=== PATIENT | female | born 1950 | race Caucasian/White ===

== ENCOUNTER 2018-03-28 16:20 | Observation (INO) | payer OTHER, MEDICAID ==
[~2018-03-28] VITALS: Ht 165.1 cm; Wt 100.0 kg
[~2018-03-28 16:20] MED LIST: BUPR150T3 PO; EXFO5TAB PO; HYDR-3580 PO; METO25CR PO; TORS20TA PO; WARF2.5 PO
[2018-03-28 16:22] VITALS: BP 182/89; PULSE 165; RESP 20; TEMP 99; O2SAT 97
[2018-03-28] MEDS ORDERED: ASPI-516 CHEW (16:33)
[2018-03-28] MEDS ORDERED: TORS20TA PO (16:33)
[2018-03-28] MEDS ORDERED: BUPR150CR PO (16:33)
[2018-03-28] MEDS ORDERED: FISHCAP4 PO (16:33)
[2018-03-28] MEDS ORDERED: WARF-18 PO (16:33)
[2018-03-28] MEDS ORDERED: METO1TAB42 PO (16:33)
[2018-03-28] MEDS ORDERED: ATOR20TA15 PO (16:36)
[2018-03-28] MEDS ORDERED: VALS1TAB70 PO (16:36)
[2018-03-28] MEDS ORDERED: GABA100C4 PO (16:36)
[2018-03-28] MEDS ORDERED: MIRTA15 PO (16:36)
[2018-03-28] MEDS ORDERED: LABE200T2 PO (16:36)
[2018-03-28] MEDS ORDERED: CLON0.3D T-DERMAL (16:36)
[2018-03-28] MEDS ORDERED: METF500T PO ×2 (16:36→19:29)
[2018-03-28] MEDS ORDERED: GERI8.6T PO (16:36)
[2018-03-28] MEDS: METOPROLOL TARTRATE 5 MG/5 ML VIAL IV PUSH PRN ×3 (16:39→16:54)
--- NOTE | 2018-03-28 16:41 | PD ---
HPI Chief Complaint: Cardiac Complaint Time Seen by Provider: 16:32 Travel History International Travel<30 days: No Contact w/Intl Traveler<30days: No Traveled to known affect area: No History of Present Illness HPI 67-year-old female complains of lower extremity swelling. Patient states that she started having increasing lower extremity swelling for the past 2 weeks. Patient states that she has some mild aching headache in the left side of the head yesterday but not today. Patient denies any visual change. Patient denies any neck pain. Patient denies any chest pain. Patient states that she had intermittent shortness of breath and dyspnea on exertion. Patient denies abdominal pain. Patient denies any nausea vomiting diarrhea. Patient denies any fever chills. Patient denies any injury to the lower extremity. Patient denies any history of DVT or PE. Patient has history hypertension, diabetes, hyper lipidemia. Patient status post stent placement right leg. Patient also has history of COPD. Patient is a smoker. Patient is on Coumadin. Patient on metoprolol ER 25 mg daily. PFSH Past Medical History Arthritis: Yes Autoimmune Disease: No Heart Rhythm Problems: No Cancer: No Cardiovascular Problems: Yes (HTN) High Cholesterol: Yes Chest Pain: No Congestive Heart Failure: No COPD: Yes Diabetes: Yes Patient Takes Glucophage: Yes Diminished Hearing: No Endocrine: No GERD: No Genitourinary: No Hepatitis: No Hiatal Hernia: No Hypertension: Yes Immune Disorder: No Implanted Vascular Access Dvce: Yes Musculoskeletal: Yes (ARTHRITIS, BACK PROBLEMS) Neurologic: No Psychiatric: No Reproductive: No Respiratory: Yes Immunizations Current: No Thyroid Disease: No Ulcer: No Influenza Vaccination: Yes ?: Not Past Surgical History Abdominal Surgery: Yes (CHOLECYSTECTOMY) AICD: No Appendectomy: Yes Body Medical Devices: STENT RIGHT LEG Cardiac Surgery: No Cholecystectomy: Yes Ear Surgery: No Endocrine Surgery: No Eye Surgery: No Genitourinary Surgery: No Gynecologic Surgery: Yes (D AND C) Joint Replacement: Yes (LEFT HIP) Oral Surgery: No Pacemaker: No Thoracic Surgery: No Other Surgery: Yes (LEFT LEG SURGERY DUE TO TORN LIGAMENT ) Social History Alcohol Use: No Tobacco Use: Yes (1 PPD) Substance Use: No Allergies-Medications (Allergen,Severity, Reaction): Coded Allergies: No Known Allergies (Unverified Adverse Reaction, Unknown, 03/28/18) Reported Meds & Prescriptions Reported Meds & Active Scripts Active Reported Mirtazapine 15 Mg Tab 15 Mg PO HS Gabapentin 100 Mg Cap 100 Mg PO TID PRN Labetalol (Labetalol HCl) 200 Mg Tab 200 Mg PO BID Clonidine 168 HR Patch (Clonidine HCl) 0.3 Mg/24 Hr Patch 1 Patch T-DERMAL Q7D Valsartan 320 Mg Tab 320 Mg PO DAILY Atorvastatin (Atorvastatin Calcium) 20 Mg Tab 20 Mg PO HS Metformin (Metformin HCl) 500 Mg Tab 500 Mg PO DAILY With a meal Vidhi-Declan (Sennosides) 8.6 Mg Tab 2 Tab PO HS Fish Oil + D3 (Fish Oil-Cholecalciferol) 1,200-1,000 Mg-Unit Cap 1 Cap PO DAILY Aspirin 81 Mg Chew 81 Mg CHEW DAILY Wellbutrin SR 12 HR (Bupropion HCl) 150 Mg Tab 150 Mg PO DAILY Metoprolol Succinate ER 24 HR (Metoprolol Succinate) 25 Mg Tab 25 Mg PO BID Torsemide 20 Mg Tab 20 Mg PO DAILY Warfarin 2.5 Mg Tab 2.5 Mg PO DAILY Review of Systems General / Constitutional: No: Fever Eyes: No: Visual changes HENT: No: Headaches Cardiovascular: No: Chest Pain or Discomfort Respiratory: Positive: Shortness of Breath Gastrointestinal: No: Abdominal Pain Genitourinary: No: Dysuria Musculoskeletal: Positive: Edema, No: Pain Skin: No Rash Neurologic: No: Weakness Psychiatric: No: Depression Endocrine: No: Polydipsia Hematologic/Lymphatic: No: Easy Bruising Physical Exam Narrative GENERAL: Well-nourished, well-developed patient. SKIN: Focused skin assessment warm/dry. HEAD: Normocephalic. EYES: No scleral icterus. No injection or drainage. NECK: Supple, trachea midline. No JVD or lymphadenopathy. CARDIOVASCULAR: Irregularly irregular rate and rhythm without murmurs, gallops, or rubs. RESPIRATORY: Breath sounds equal bilaterally. No accessory muscle use. GASTROINTESTINAL: Abdomen soft, non-tender, nondistended. MUSCULOSKELETAL: Patient has +2 pitting edema lower extremity. BACK: Nontender without obvious deformity. No CVA tenderness. Neurologic exam normal. Data Data Last Documented VS Vital Signs Date Time Temp Pulse Resp B/P (MAP) Pulse Ox O2 Delivery O2 Flow Rate FiO2 03/28/18 16:51 134 16 121/73 (89) 99 Room Air 03/28/18 16:22 99.0 Orders Orders Metoprolol Tartrate Inj (Lopressor Inj) (03/28/18 16:45) Electrocardiogram (03/28/18 16:34) Complete Blood Count With Diff (03/28/18 16:34) Comprehensive Metabolic Panel (03/28/18 16:34) Creatine Kinase (Cpk) (03/28/18 16:34) Troponin I (03/28/18 16:34) B-Type Natriuretic Peptide (03/28/18 16:34) Prothrombin Time / Inr (Pt) (03/28/18 16:34) Act Partial Throm Time (Ptt) (03/28/18 16:34) Urinalysis - C+S If Indicated (03/28/18 16:34) Thyroid Stimulating Hormone (03/28/18 16:34) Chest, Single Ap (03/28/18 16:34) Iv Access Insert/Monitor (03/28/18 16:34) Ecg Monitoring (03/28/18 16:34) Oximetry (03/28/18 16:34) Diltiazem (Cardizem) (03/28/18 17:00) Us Leg Venous Doppler Bilat (03/28/18 17:21) Furosemide Inj (Lasix Inj) (03/28/18 18:30) Potassium Chloride (Kcl) (03/28/18 18:30) Labs Laboratory Tests Test 03/28/18 16:35 White Blood Count 6.2 TH/MM3 Red Blood Count 4.90 MIL/MM3 Hemoglobin 13.6 GM/DL Hematocrit 41.9 % Mean Corpuscular Volume 85.6 FL Mean Corpuscular Hemoglobin 27.8 PG Mean Corpuscular Hemoglobin Concent 32.5 % Red Cell Distribution Width 17.7 % Platelet Count 179 TH/MM3 Mean Platelet Volume 7.8 FL Neutrophils (%) (Auto) 60.3 % Lymphocytes (%) (Auto) 31.4 % Monocytes (%) (Auto) 5.4 % Eosinophils (%) (Auto) 1.9 % Basophils (%) (Auto) 1.0 % Neutrophils # (Auto) 3.7 TH/MM3 Lymphocytes # (Auto) 1.9 TH/MM3 Monocytes # (Auto) 0.3 TH/MM3 Eosinophils # (Auto) 0.1 TH/MM3 Basophils # (Auto) 0.1 TH/MM3 CBC Comment DIFF FINAL Differential Comment Prothrombin Time 11.0 SEC Prothromb Time International Ratio 1.1 RATIO Activated Partial Thromboplast Time 21.7 SEC Blood Urea Nitrogen 13 MG/DL Creatinine 1.03 MG/DL Random Glucose 134 MG/DL Total Protein 6.8 GM/DL Albumin 3.5 GM/DL Calcium Level 8.7 MG/DL Alkaline Phosphatase 62 U/L Aspartate Amino Transf (AST/SGOT) 15 U/L Alanine Aminotransferase (ALT/SGPT) 13 U/L Total Bilirubin 1.5 MG/DL Sodium Level 143 MEQ/L Potassium Level 3.8 MEQ/L Chloride Level 112 MEQ/L Carbon Dioxide Level 20.5 MEQ/L Anion Gap 11 MEQ/L Estimat Glomerular Filtration Rate 53 ML/MIN Total Creatine Kinase 63 U/L Troponin I LESS THAN 0.02 NG/ML B-Type Natriuretic Peptide 240 PG/ML Thyroid Stimulating Hormone 3rd Gen 2.410 uIU/ML MDM Medical Decision Making Medical Screen Exam Complete: Yes Emergency Medical Condition: Yes Interpretation(s) Last Impressions Lower Extremity Ultrasound 03/28/18 1721 Signed Impressions: CONCLUSION: 1. No DVT identified. Chest X-Ray 03/28/18 1634 Signed Impressions: CONCLUSION: Suspected minimal left lateral base atelectasis or consolidation. 1802 p.m. CBC within normal limits. Creatinine 1.03. GFR 53. Cardiac enzymes are normal. BNP 240. Differential Diagnosis Differential diagnosis including atrial fibrillation with RVR, CHF, dependent edema, DVT. Narrative Course 67-year-old female with lower extremity edema and dyspnea on exertion. EKG shows atrial fibrillation with RVR. Metoprolol 5 mg IV given. Repeated metoprolol 5 mg IV. Cardizem 90 mg p.o. given. Patient's heart rate in 100s range. Lasix 40 mg IV given. Potassium 20 mEq p.o. given. Patient's INR 1.1. Patient's not sure whether she has been taking Coumadin at home. Eliquis 5 mg p.o. given. Diagnosis Primary Impression: Atrial fibrillation with RVR Additional Impression: CHF (congestive heart failure) Qualified Codes: I50.9 - Heart failure, unspecified Admitting Information Admitting Physician Requests: Admit Quan Hahn MD Mar 28, 2018 16:41
[2018-03-28 16:47] LABS: AUTOMATED NEUTROPHIL # 3.7 TH/MM3 (1.8-7.7); BASOPHIL # 0.1 TH/MM3 (0-0.2); EOSINOPHIL # 0.1 TH/MM3 (0-0.4); EOSINOPHIL % 1.9 % (0.0-4.0); HEMATOCRIT 41.9 % (35.0-46.0); HEMOGLOBIN 13.6 GM/DL (11.6-15.3); LYMPH % 31.4 % (9.0-44.0); LYMPHOCYTE # 1.9 TH/MM3 (1.0-4.8); MEAN CELL VOLUME 85.6 FL (80.0-100.0); MEAN CORPUSCULAR HEMOGLOBIN 27.8 PG (27.0-34.0); MEAN CORPUSCULAR HGB CONC 32.5 % (32.0-36.0); MEAN PLATELET VOLUME 7.8 FL (7.0-11.0); MONO % 5.4 % (0.0-8.0); MONOCYTE # 0.3 TH/MM3 (0-0.9); NEUT % 60.3 % (16.0-70.0); PLATELET COUNT 179 TH/MM3 (150-450); RED CELL DISTRIBUTION WIDTH 17.7 % (11.6-17.2); WHITE BLOOD COUNT 6.2 TH/MM3 (4.0-11.0)
[2018-03-28 16:51] VITALS: BP 121/73; PULSE 134; RESP 16; O2SAT 99
[2018-03-28 17:00] LABS: INTERNATIONAL NORMALIZED RATIO 1.1 RATIO
[2018-03-28] MEDS ORDERED: DILTIAZEM HCL 90 MG TAB PO ONE (17:00)
[2018-03-28 17:10] LABS: ALBUMIN 3.5 GM/DL (3.4-5.0); ALT (GPT) 13 U/L (10-53); AST (GOT) 15 U/L (15-37); BICARBONATE 20.5 MEQ/L (21.0-32.0); BLOOD UREA NITROGEN 13 MG/DL (7-18); CALCIUM 8.7 MG/DL (8.5-10.1); CHLORIDE 112 MEQ/L (98-107); CREATININE 1.03 MG/DL (0.50-1.00); GLOMERULAR FILTRATION RATE 53 ML/MIN (>89); GLUCOSE,RANDOM 134 MG/DL (74-106); SODIUM (NA) 143 MEQ/L (136-145)
[2018-03-28 17:20] LABS: ALKALINE PHOSPHATASE 62 U/L (45-117); TOTAL BILIRUBIN ADULT 1.5 MG/DL (0.2-1.0); TOTAL PROTEIN 6.8 GM/DL (6.4-8.2); TROPONIN I LESS THAN 0.02 NG/ML (0.02-0.05)
--- NOTE | 2018-03-28 17:26 | RADRPT ---
EXAM DATE: 03/28/2018 4:57 PM EDT AGE/SEX: 67 years / Female INDICATIONS: Short of breath. CLINICAL DATA: This is the patient's initial encounter. Patient reports that signs and symptoms have been present for 1 day and indicates a pain score of 0/10. MEDICAL/SURGICAL HISTORY: None. None. COMPARISON: [facility] – [place], CHEST SINGLE AP, 10/02/2012. . FINDINGS: The heart size is upper limits of normal. There is minimal increased density at the left lateral base . The right lung is clear. CONCLUSION: Suspected minimal left lateral base atelectasis or consolidation. Electronically signed by: Marc Butler MD 03/28/2018 5:25 PM EDT
--- NOTE | 2018-03-28 17:58 | RADRPT ---
EXAM DATE: 03/28/2018 5:53 PM EDT AGE/SEX: 67 years / Female INDICATIONS: Bilateral lower extremity edema. CLINICAL DATA: This is the patient's initial encounter. Patient reports that signs and symptoms have been present for 2 weeks and indicates a pain score of 0/10. MEDICAL/SURGICAL HISTORY: Diabetes. Hypertension. Hypercholesterolemia. Coumadin. . Left Fe m-Pop Graft. COMPARISON: [facility] – [place], US LEG BILATERAL VENOUS DOPPLER, 02/25/2012. . TECHNIQUE: Venous ultrasound of both lower extremities was performed from the inguinal ligament to t he proximal calf. Real-time, color Doppler and spectral tracing, compression and augmentation techni ques were used. FINDINGS: Right Leg: Normal compression of the deep venous system from the inguinal region to the proximal kizzy f. No echogenic clot is seen. Normal response of the venous system to augmentation and respiration. Left Leg: Normal compression of the deep venous system from the inguinal region to the proximal calf . No echogenic clot is seen. Normal response of the venous system to augmentation and respiration. Other: None. CONCLUSION: 1. No DVT identified. Electronically signed by: Sukhdeep Joseph MD 03/28/2018 5:57 PM EDT
[2018-03-28] MEDS ORDERED: POTASSIUM CHLORIDE 20 MEQ CONTROLLED RELEASE TAB PO ONE (18:30)
[2018-03-28] MEDS ORDERED: FUROSEMIDE 40 MG/4 ML VIAL IV PUSH ONE (18:30)
[2018-03-28] MEDS ORDERED: APIXABAN 5 MG TABLET PO ONE (18:30)
[2018-03-28] MEDS ORDERED: ASPI81TA23 PO (19:29)
[2018-03-28] MEDS ORDERED: OMEG100010 PO (19:29)
[2018-03-28] MEDS ORDERED: CHOL5000 PO (19:29)
[2018-03-28 19:50] VITALS: BP 151/64; PULSE 91; RESP 20; O2SAT 97
[2018-03-28] MEDS ORDERED: SODIUM CHLORIDE 0.9% FLUSH 10 ML FLUSH IV FLUSH PRN (20:00)
[2018-03-28] MEDS ORDERED: LACTULOSE SYRUP 20 GM/30 ML CUP PO PRN (20:00)
[2018-03-28] MEDS ORDERED: GLUCAGON 1 MG/ML VIAL OTHER PRN (20:00)
[2018-03-28] MEDS ORDERED: DEXTROSE 50% IN WATER 50 ML VIAL(D50) IV PUSH PRN (20:00)
[2018-03-28] MEDS ORDERED: MAGNESIUM HYDROXIDE SUSP 30 ML CUP PO PRN (20:00)
[2018-03-28] MEDS ORDERED: SENNOSIDES 8.6 MG TAB PO PRN (20:00)
[2018-03-28] MEDS ORDERED: BISACODYL 10 MG SUPP RECTAL PRN (20:00)
[2018-03-28] MEDS ORDERED: ACETAMINOPHEN 325 MG TAB PO PRN (20:00)
[2018-03-28] MEDS ORDERED: METOCLOPRAMIDE HCL 10 MG/2 ML VIAL IV PUSH PRN (20:00)
--- NOTE | 2018-03-28 20:09 | HHI.HP ---
[facility] Admission Diagnosis Atrial fibrillation with RVR. CHF. Diagnoses: (1) Atrial fibrillation with RVR Diagnosis: Principal (2) CHF (congestive heart failure) Diagnosis: Principal (3) HTN (hypertension) Diagnosis: Principal (4) ADDISON (acute kidney injury) Diagnosis: Principal (5) DM (diabetes mellitus) Diagnosis: Principal Travel History International Travel<30 Days: No Contact w/Intl Traveler <30 Da: No Traveled to Known Affected Are: No History of Present Illness This is a 67-year-old female with a PMH of HTN, CHF (Unknown EF), Hyperlipidemia , A. fib, COPD, Tobacco Abuse and DM who presented to ER with complaints of bilateral lower extremity edema x2 wks. States she is on Torsemide for edema however doesn't usually have such significant lower extremity edema. Pt is very poor historian regarding her medical problems. States she does not follow w/ a Sponge Press Operator but thinks she was referred to one recently, cannot recall name or what was done to her besides and EKG. States she was previously on Coumadin but cannot tell me how long ago or why she is off of it now, only on ASA at this time. Denies chest pain or SOB. On arrival, noted to be in A-fib w / RVR, HR 160's, s/p Cardizem 90mg PO x1 and Eliquis 5mg PO, currently HR 80's. BP 182/89 on arrival, currently 151/64. O2 sat 97% on RA, Afebrile. CBC unremarkable. Creatinine 1.03, previously 0.87 on 07/23/2013. Troponin negative. BNP 240. INR 1.1. CXR with suspected minimal left lateral base atelectasis or consolidation. LE Doppler negative for DVT. Review of Systems Except as stated in HPI: all other systems reviewed are Neg ROS: 14 point review of systems otherwise negative. Past Family Social History Past Medical History PMH: HTN, CHF (Unknown EF), Hyperlipidemia, A. fib, COPD, Tobacco Abuse and DM Past Surgical History PAST SURGICAL HISTORY: Cholecystectomy, Appendectomy, Left Hip Replacement, D&C , Left Leg Surgery, RLE Stent Allergies: Coded Allergies: No Known Allergies (Unverified Allergy, Unknown, 03/28/18) Family History PAST FAMILY HISTORY: Reviewed. No h/o DM or CAD Social History PAST SOCIAL HISTORY: Negative for alcohol or drugs. Smokes 1ppd. Physical Exam Vital Signs Vital Signs Date Time Temp Pulse Resp B/P (MAP) Pulse Ox O2 Delivery O2 Flow Rate FiO2 03/28/18 19:50 91 20 151/64 (93) 97 Room Air 03/28/18 16:51 134 16 121/73 (89) 99 Room Air 03/28/18 16:22 99.0 165 20 182/89 (120) 97 Physical Exam PE: GENERAL: Pleasant middle-aged white female in no acute distress. Daughter and granddaughter at bedside HEENT: PERRLA, EOMI. No scleral icterus or conjunctival pallor. No lid lag or facial droop. CARDIOVASCULAR: Irregularly irregular, HR 80s. No obvious murmurs to auscultation. No chest tenderness to palpation. RESPIRATORY: No obvious rhonchi or wheezing. Clear to auscultation. Breath sounds equal bilaterally. GASTROINTESTINAL: Abdomen soft, non-tender, nondistended. BS normal. MUSCULOSKELETAL: Extremities without clubbing, cyanosis. 2+ edema bilaterally. No obvious deformities. NEUROLOGICAL: Awake, alert and oriented x4. No focal neurologic deficits. Moving both upper and lower extremities spontaneously. Laboratory Laboratory Tests Test 03/28/18 16:35 White Blood Count 6.2 Red Blood Count 4.90 Hemoglobin 13.6 Hematocrit 41.9 Mean Corpuscular Volume 85.6 Mean Corpuscular Hemoglobin 27.8 Mean Corpuscular Hemoglobin Concent 32.5 Red Cell Distribution Width 17.7 Platelet Count 179 Mean Platelet Volume 7.8 Neutrophils (%) (Auto) 60.3 Lymphocytes (%) (Auto) 31.4 Monocytes (%) (Auto) 5.4 Eosinophils (%) (Auto) 1.9 Basophils (%) (Auto) 1.0 Neutrophils # (Auto) 3.7 Lymphocytes # (Auto) 1.9 Monocytes # (Auto) 0.3 Eosinophils # (Auto) 0.1 Basophils # (Auto) 0.1 CBC Comment DIFF FINAL Differential Comment Prothrombin Time 11.0 Prothromb Time International Ratio 1.1 Activated Partial Thromboplast Time 21.7 Blood Urea Nitrogen 13 Creatinine 1.03 Random Glucose 134 Total Protein 6.8 Albumin 3.5 Calcium Level 8.7 Alkaline Phosphatase 62 Aspartate Amino Transf (AST/SGOT) 15 Alanine Aminotransferase (ALT/SGPT) 13 Total Bilirubin 1.5 Sodium Level 143 Potassium Level 3.8 Chloride Level 112 Carbon Dioxide Level 20.5 Anion Gap 11 Estimat Glomerular Filtration Rate 53 Total Creatine Kinase 63 Troponin I LESS THAN 0.02 B-Type Natriuretic Peptide 240 Thyroid Stimulating Hormone 3rd Gen 2.410 Result Diagram: 03/28/18 1635 03/28/18 1635 Caprini VTE Risk Assessment Caprini VTE Risk Assessment: Mod/High Risk (score >= 2) Caprini Risk Assessment Model Point Value = 1 Point Value = 2 Point Value = 3 Point Value = 5 Age 41-60 Minor surgery BMI > 25 kg/m2 Swollen legs Varicose veins or History of unexplained or recurrent spontaneous Oral contraceptives or hormone replacement Sepsis (< 1 month) Serious lung disease, including pneumonia (< 1 month) Abnormal pulmonary function Acute myocardial infarction Congestive heart failure (< 1 month) History of inflammatory bowel disease Medical patient at bed rest Age 61-74 Arthroscopic surgery Major open surgery (> 45 min) Laparoscopic surgery (> 45 min) Malignancy Confined to bed (> 72 hours) Immobilizing plaster cast Central venous access Age >= 75 History of VTE Family history of VTE Factor V Leiden Prothrombin [id number] Lupus anticoagulant Anticardiolipin antibodies Elevated serum homocysteine Heparin-induced thrombocytopenia Other congenital or acquired thrombophilia Stroke (< 1 month) Elective arthroplasty Hip, pelvis, or leg fracture Acute spinal cord injury (< 1 month) Prophylaxis Regimen Total Risk Factor Score Risk Level Prophylaxis Regimen 0-1 Low Early ambulation 2 Moderate Order ONE of the following: *Sequential Compression Device (SCD) *Heparin 5000 units SQ BID 3-4 Higher Order ONE of the following medications: *Heparin 5000 units SQ TID *Enoxaparin/Lovenox 40 mg SQ daily (WT < 150 kg, CrCl > 30 mL/min) *Enoxaparin/Lovenox 30 mg SQ daily (WT < 150 kg, CrCl > 10-29 mL/min) *Enoxaparin/Lovenox 30 mg SQ BID (WT < 150 kg, CrCl > 30 mL/min) AND/OR *Sequential Compression Device (SCD) 5 or more Highest Order ONE of the following medications: *Heparin 5000 units SQ TID (Preferred with Epidurals) *Enoxaparin/Lovenox 40 mg SQ daily (WT < 150 kg, CrCl > 30 mL/min) *Enoxaparin/Lovenox 30 mg SQ daily (WT < 150 kg, CrCl > 10-29 mL/min) *Enoxaparin/Lovenox 30 mg SQ BID (WT < 150 kg, CrCl > 30 mL/min) AND *Sequential Compression Device (SCD) Assessment and Plan Problem List: (1) Atrial fibrillation with RVR ICD Code: I48.91 - Unspecified atrial fibrillation Status: Acute (2) CHF (congestive heart failure) ICD Code: I50.9 - Heart failure, unspecified Status: Acute (3) HTN (hypertension) ICD Code: I10 - Essential (primary) hypertension (4) ADDISON (acute kidney injury) ICD Code: N17.9 - Acute kidney failure, unspecified (5) DM (diabetes mellitus) ICD Code: E11.9 - Type 2 diabetes mellitus without complications Assessment and Plan A/P: 1. Afib w/ RVR: h/o Afib, HR 160's upon arrival, s/p Cardizem 90mg PO x1 in ER , currently HR 80's. Does not follow w/ Sponge Press Operator, unclear why she is off Coumadin, s/p Eliquis in ER, will continue w/ anticoagulation. Continue Cardizem PO. Check Echo to eval for valvular abnormality/cardiomyopathy. Consult Cardiology as needed. 2. CHF: Unknown EF. BNP 240, +2 edema bilaterally on exam, CXR w/ left base atelectasis/consolidation, images reviewed by me, no evidence of infection. Monitor I/O. s/p Lasix, continue w/ diuresis-caution w/ renal function. Doppler LE negative for DVT. 3. HTN: Uncontrolled. BP 180's on arrival, monitor BP, antihypertensives as needed for BP >180 4. ADDISON: Creatinine 1.03, previously normal 07/23/13, monitor I/O, caution w/ IVF in light of CHF. Repeat labs in am. 5. DM: Sliding scale w/ Accu-Cheks. Hold Metformin. 6. DVT Prophylaxis: Eliquis 7. Social work for d/c planning as needed 8. Case discussed w/ ER physician at length, labs/records/imaging reviewed by me. Problem Qualifiers (1) CHF (congestive heart failure): Qualified Codes: I50.9 - Heart failure, unspecified Lolis Vincent MD Mar 28, 2018 20:09
[2018-03-28] MEDS: INSULIN ASPART SUPPLEMENTAL SCALE SQ SCH (21:00)
[2018-03-28] MEDS: DOCUSATE SODIUM 50 MG/SENNA 8.6 MG TAB PO SCH (21:00)
[2018-03-28 21:40] LABS: BACTERIA, URINE OCC /hpf; BILIRUBIN, URINE NEG (NEG); BLOOD, URINE SMALL (NEG); GLUCOSE,URINE NEG (NEG); KETONE, URINE NEG (NEG); NITRITE,URINE NEG (NEG); SQUAMOUS EPITHELIAL CELL URINE 1 /hpf (0-5); URINE COLOR Colorless (YELLW/STRAW); URINE LEUKOCYTE ESTERASE NEG (NEG)
[2018-03-28] MEDS: MIRTAZAPINE 15 MG TAB PO SCH (22:36)
[2018-03-28] MEDS: ATORVASTATIN 20 MG TAB PO SCH (22:37)
[2018-03-28] MEDS: LABETALOL HCL 200 MG TAB PO SCH (22:37)
[2018-03-28] MEDS: SODIUM CHLORIDE 0.9% FLUSH 10 ML FLUSH IV FLUSH SCH (22:38)
[2018-03-29] VITALS (9 sets, daily range): BP systolic 130–172; BP diastolic 68–89; PULSE 62–103; RESP 16–18; TEMP 97.3–98.2; O2SAT 90–99
[2018-03-29] MEDS: MORPHINE SULFATE 4 MG/ML INJ IV PUSH PRN ×3 (01:55→09:47)
[2018-03-29] MEDS: ACETAMINOPHEN/HYDROcodone 325 MG/5 MG TAB PO PRN ×2 (03:02→23:34)
[2018-03-29 07:18] LABS: AUTOMATED NEUTROPHIL # 3.1 TH/MM3 (1.8-7.7); BASOPHIL % 0.8 % (0.0-2.0); EOSINOPHIL # 0.1 TH/MM3 (0-0.4); EOSINOPHIL % 1.9 % (0.0-4.0); HEMOGLOBIN 14.4 GM/DL (11.6-15.3); LYMPH % 30.1 % (9.0-44.0); LYMPHOCYTE # 1.5 TH/MM3 (1.0-4.8); MEAN CELL VOLUME 86.7 FL (80.0-100.0); MEAN CORPUSCULAR HEMOGLOBIN 28.3 PG (27.0-34.0); MEAN CORPUSCULAR HGB CONC 32.6 % (32.0-36.0); MEAN PLATELET VOLUME 7.7 FL (7.0-11.0); MONO % 5.6 % (0.0-8.0); MONOCYTE # 0.3 TH/MM3 (0-0.9); NEUT % 61.6 % (16.0-70.0); PLATELET COUNT 152 TH/MM3 (150-450); RED BLOOD COUNT 5.08 MIL/MM3 (4.00-5.30); RED CELL DISTRIBUTION WIDTH 17.4 % (11.6-17.2)
[2018-03-29 07:39] LABS: ALBUMIN 3.7 GM/DL (3.4-5.0); ALT (GPT) 14 U/L (10-53); AST (GOT) 15 U/L (15-37); BICARBONATE 24.9 MEQ/L (21.0-32.0); BLOOD UREA NITROGEN 12 MG/DL (7-18); CALCIUM 8.7 MG/DL (8.5-10.1); CHLORIDE 109 MEQ/L (98-107); CREATININE 1.01 MG/DL (0.50-1.00); GLOMERULAR FILTRATION RATE 55 ML/MIN (>89); GLUCOSE,RANDOM 133 MG/DL (74-106); SODIUM (NA) 143 MEQ/L (136-145)
[2018-03-29 07:43] LABS: ALKALINE PHOSPHATASE 66 U/L (45-117); TOTAL BILIRUBIN ADULT 1.7 MG/DL (0.2-1.0); TOTAL PROTEIN 7.1 GM/DL (6.4-8.2); TROPONIN I LESS THAN 0.02 NG/ML (0.02-0.05)
[2018-03-29] MEDS: INSULIN ASPART SUPPLEMENTAL SCALE SQ SCH ×4 (08:00→20:32)
[2018-03-29] MEDS: DOCUSATE SODIUM 50 MG/SENNA 8.6 MG TAB PO SCH ×2 (09:00→20:34)
--- NOTE | 2018-03-29 09:25 | MB ---
cc: Luiz Lowe MD DATE: 03/29/2018 REASON FOR CONSULTATION: Atrial fibrillation with rapid ventricular response and CHF. HISTORY OF PRESENT ILLNESS: The patient is a pleasant 67-year-old woman who is an extremely poor historian. From what I gather from her, she has had atrial fibrillation for some period of time and has been started on reasonable medication, but has only seen a crap shooter recently once, but she cannot tell me exactly who or where she went for this. I will check with my office later to see if it was with one of my partners. She herself was feeling pretty good with the exception of worsening lower extremity edema. She presented to her family physician who found her to be in rapid atrial fibrillation and thus directed to the emergency department. Here, she has been rate controlled and given diuretics and now she says she feels quite well. She is not on any IV medications and is currently well rate controlled with her atrial fibrillation. She is asymptomatic, denying any chest pain, shortness of breath, lightheadedness or dizziness. PAST MEDICAL HISTORY: 1. Ongoing tobacco abuse (counseled at length to quit, she says she has stopped yesterday). 2. Diabetes. 3. Hypertension. 4. CHF. 5. Atrial fibrillation, on warfarin. CURRENT MEDICATIONS: 1. Lasix 40 mg IV b.i.d. 2. Aspirin 81 mg daily. 3. Wellbutrin. 4. Diltiazem 120 mg daily. 5. Atorvastatin 20 mg at bedtime. 6. Labetalol 200 mg b.i.d. ALLERGIES: NO KNOWN DRUG ALLERGIES. PHYSICAL EXAMINATION: VITAL SIGNS: Afebrile, pulse 92, respiratory rate 16, BP 172/77, saturating 96 on room air. GENERAL: Pleasant, obese woman, who appears older than her stated age, in no distress. LUNGS: Decreased breath sounds in all rees. CARDIOVASCULAR: Irregularly irregular rhythm with a regular rate. No murmurs appreciated. ABDOMEN: Benign. EXTREMITIES: 1+ edema bilaterally. Possible signs of cellulitis with mild erythema bilaterally. LABORATORY DATA: White count 5.0, hematocrit 44.0, platelets 152. Sodium 143, potassium 3.8, chloride 109, bicarbonate 24.9, BUN 55, creatinine 1.01, glucose 133. Cardiac enzymes are negative x 3. INR is 1.1. IMAGING STUDIES: Lower extremity ultrasound was negative for DVT. Chest x-ray showed minimal left lateral base atelectasis and consolidation. EKG showed rapid atrial fibrillation of 129 with fairly diffuse nonspecific ST changes. Current telemetry shows rate controlled atrial fibrillation. ASSESSMENT AND PLAN: 1. Atrial fibrillation. The patient's atrial fibrillation is currently rate controlled on her current medications. Her medication reconciliation says she is on warfarin though she is currently not therapeutic. The patient is an extremely poor historian and cannot tell me specifically the medication she is taking. I will resume her warfarin here. 2. Congestive heart failure. The patient's congestive heart failure is likely due to her uncontrolled heart rate. She will undergo an echocardiogram. She seems fairly well compensated currently. 3. Abnormal EKG. She does have ST changes during her higher heart rates. I will have her undergo a nuclear stress test to exclude an ischemic etiology. Further recommendations based on the above. Thank you again for the opportunity to participate in this patient's care. MD FAITH Canales/ROSALINDA , 08:47 AM , 09:24 AM
[2018-03-29] MEDS: LABETALOL HCL 200 MG TAB PO SCH ×2 (09:31→20:34)
[2018-03-29] MEDS: FUROSEMIDE 40 MG/4 ML VIAL IV PUSH SCH ×2 (09:31→18:48)
[2018-03-29] MEDS: DILTIAZEM-CD 120 MG CAP ER PO SCH (09:32)
[2018-03-29] MEDS: ASPIRIN EC 81 MG TABEC PO SCH (09:32)
[2018-03-29] MEDS: buPROPion HCL 150 MG SUSTAINED RELEASE TAB PO SCH (09:32)
[2018-03-29] MEDS: SODIUM CHLORIDE 0.9% FLUSH 10 ML FLUSH IV FLUSH SCH ×2 (09:34→20:34)
--- NOTE | 2018-03-29 10:07 | HHI.PR ---
Subjective Remarks Follow-up on patient A. fib with RVR, CHF. Patient seen and examined. Patient states she is feeling better. She is wondering if she will be able to go home later today. She denies any chest pain or shortness of breath. She denies any nausea, vomiting or abdominal pain. She denies any fever chills. She states swelling in both legs is back to her normal baseline. She admits that recently she has had a change in her medications although she cannot give me any specifics. She also states her urine output has been less. Objective Vitals Vital Signs Date Time Temp Pulse Resp B/P (MAP) Pulse Ox O2 Delivery O2 Flow Rate FiO2 03/29/18 08:19 97.3 92 16 172/77 (108) 96 03/29/18 08:04 93 03/29/18 06:03 98.1 87 17 167/74 (105) 95 03/29/18 01:29 98.2 78 17 151/72 (98) 95 03/28/18 19:50 91 20 151/64 (93) 97 Room Air 03/28/18 16:51 134 16 121/73 (89) 99 Room Air 03/28/18 16:22 99.0 165 20 182/89 (120) 97 Result Diagram: 03/29/18 0630 03/29/18 0650 Imaging Last Impressions Lower Extremity Ultrasound 03/28/18 1721 Signed Impressions: CONCLUSION: 1. No DVT identified. Chest X-Ray 03/28/18 1634 Signed Impressions: CONCLUSION: Suspected minimal left lateral base atelectasis or consolidation. Objective Remarks GENERAL: Well-developed well-nourished pleasant middle-aged white female in no acute distress. Awake and alert. Appears comfortable. HEENT: PERRLA, EOMI. No scleral icterus or conjunctival pallor. No lid lag or facial droop. No nasal drainage. Airway patent. MMM. CARDIOVASCULAR: Irregularly irregular. No obvious murmurs to auscultation. RESPIRATORY: Nonlabored. No obvious rhonchi or wheezing. Clear to auscultation. Breath sounds equal bilaterally. GASTROINTESTINAL: Abdomen soft, non-tender, nondistended. BS normal. MUSCULOSKELETAL: Extremities without clubbing, cyanosis. trace to 1+ edema bilaterally. No obvious deformities. NEUROLOGICAL: Awake, alert and oriented x4. No focal neurologic deficits. Moving both upper and lower extremities spontaneously. Normal speech. PSYCHIATRIC: Appropriate mood and affect. Normal judgment and insight. Procedures None A/P Problem List: (1) Atrial fibrillation with RVR ICD Code: I48.91 - Unspecified atrial fibrillation Status: Acute (2) CHF (congestive heart failure) ICD Code: I50.9 - Heart failure, unspecified Status: Acute (3) HTN (hypertension) ICD Code: I10 - Essential (primary) hypertension (4) ADDISON (acute kidney injury) ICD Code: N17.9 - Acute kidney failure, unspecified (5) DM (diabetes mellitus) ICD Code: E11.9 - Type 2 diabetes mellitus without complications Assessment and Plan 67-year-old female with a PMH of HTN, CHF (Unknown EF), Hyperlipidemia, A. fib , COPD, Tobacco Abuse and DM who presented to ER with complaints of bilateral lower extremity edema x2 wks. Afib w/ RVR: h/o Afib, HR 160's upon arrival, s/p Cardizem 90mg PO x1 in ER Currently rate controlled -Cardiology consulted, appreciate assistance. Per their note, plan to resume patient on warfarin. ST changes noted with higher heart rates, plan for nuclear stress test to exclude ischemic etiology. -Continue Cardizem PO -Echo ordered, follow up on results -Continue to monitor heart rate -Monitor HR CHF: Unknown EF. Suspect secondary to atrial fibrillation. BNP 240, +2 edema bilaterally on exam s/p Lasix, continue w/ diuresis-caution w/ renal function. Doppler LE negative for DVT CXR w/ left base atelectasis/consolidation -CHF teaching -Monitor I/O -Continue on IV Lasix 40 mg twice daily. Monitor electrolytes -Supplemental oxygen as needed -Monitor respiratory status -bilateral ed wraps toes to knees HTN: Uncontrolled. BP 180's on arrival -Continue on Cardizem CD 120 mg daily and labetalol 200 mg twice daily -Continue to monitor BP and adjust treatment accordingly -Clonidine as needed ADDISON: Creatinine 1.03, previously normal 07/23/13 Creatinine slightly improved to 1.01 -Continue to monitor monitor I/O -caution w/ IVF in light of CHF -Avoid nephrotoxic agents -Continue to monitor kidney function closely DM: chronic BS controlled -continue on sliding scale w/ Accu-Cheks. -Continue to hold home dose of metformin. Ongoing tobaccoism: chronic CXR shows atelectasis -Discussed smoking cessation -Nicotine patch to be ordered following Lexiscan results -IS at bedside -Naida prn -Continue to monitor respiratory status Chronic bilateral hip pain/disability Patient uses a power wheelchair for community ambulation -Resume pain medication per home regimen -PT eval/tx DVT Prophylaxis: Warfarin per cardiology Discharge Planning Patient not ready for discharge. Discharge pending further cardiac workup and clinical improvement. Also patient will need cardiology clearance prior to discharge. Problem Qualifiers (1) CHF (congestive heart failure): Qualified Codes: I50.9 - Heart failure, unspecified Cecilia Ramírez Mar 29, 2018 10:07
[2018-03-29] MEDS ORDERED: cloNIDine HCL 0.1 MG TAB PO PRN (10:15)
[2018-03-29] MEDS ORDERED: RESP: ALBUTEROL 2.5 MG/IPRATROPIUM 0.5 MG NEB (PRN) NEB (12:00)
[2018-03-29] MEDS ORDERED: PILL SPLITTER OTHER PRN (13:00)
[2018-03-29] MEDS: CYCLOBENZAPRINE HCL 10 MG TAB PO PRN ×2 (13:03→20:21)
[2018-03-29] MEDS ORDERED: REGADENOSON INJ 0.4 MG/5 ML SYR ONE (14:29)
--- NOTE | 2018-03-29 15:28 | RADRPT ---
EXAM DATE: 03/29/2018 3:24 PM EDT AGE/SEX: 67 years / Female INDICATIONS:Atrial Fibrillation. Congestive heart failure Abnormal EKG. CLINICAL DATA: This is the patient's initial encounter. Patient reports that signs and symptoms have been present for 1 day and indicates a pain score of 3/10. MEDICAL/SURGICAL HISTORY: Hypertension. Chronic obstructive pulmonary disease. Diabetes melli tus type II. Fusion, lumbar. Left hip surgery. COMPARISON: No prior exams available for comparison. DOSE: 30.2 mCi Tc 99m Myoview at rest 10.2 mCi [id number] at stress 0.4 mg Lexiscan STRESS SYMPTOMS: None. EJECTION FRACTION: 43 % TECHNIQUE: The patient underwent pharmacologic stress with infusion of prescribed dose. Continuous ECG tracing was monitored during stress. Gated SPECT imaging was performed after stress and conventi onal SPECT imaging was performed at rest. The examination was performed on a SPECT/CT scanner, both attenuation and non-corrected datasets were reviewed. FINDINGS: Distribution: The maximum perfused segment at stress is in the anterolateral wall. Perfusion Study: The pattern of perfusion at stress is within normal limits. Gated Study: There is mild global hypokinesis. The ejection fraction is calculated at 43%. RISK CATEGORY: Intermediate (1-3 % Annual Mortality Rate) CONCLUSION: 1. Global hypokinesis with ejection fraction of 43%. 2. No definite reversibility seen to suggest ischemia. Electronically signed by: Sukh Vidal MD 03/29/2018 3:27 PM EDT
--- NOTE | 2018-03-29 16:41 | EKG ---
Date Performed: 03/28/2018 Time Performed: 16:29:58 PTAGE: 67 years EKG: ATRIAL FIBRILLATION WITH RAPID VENTRICULAR RESPONSE WITH ABERRANT CONDUCTION OR VENTRICULAR PREMATURE COMPLEXES POSSIBLE RIGHT VENTRICULAR CONDUCTION DELAY NONSPECIFIC ST & T-WAVE ABNORMALITY ABNORMAL ECG Compared to PREVIOUS TRACING , atrial fibrillation is new. PREVIOUS TRACIN06/02/2013 12.58 DOCTOR: Clemente Rosas Interpretating Date/Time 03/29/2018 16:40:40
[2018-03-29] MEDS: WARFARIN SOD 2.5 MG TAB PO SCH (17:29)
[2018-03-29] MEDS: ATORVASTATIN 20 MG TAB PO SCH (20:34)
[2018-03-29] MEDS: MIRTAZAPINE 15 MG TAB PO SCH (20:34)
[2018-03-30 03:13] VITALS: BP 150/69; PULSE 89; RESP 18; TEMP 97.8; O2SAT 92
[2018-03-30 07:52] VITALS: BP 191/81; PULSE 83; RESP 16; TEMP 97.7; O2SAT 93
[2018-03-30 07:54] VITALS: PULSE 94
[2018-03-30] MEDS: CYCLOBENZAPRINE HCL 10 MG TAB PO PRN (07:54)
[2018-03-30] MEDS: INSULIN ASPART SUPPLEMENTAL SCALE SQ SCH ×2 (08:00→12:00)
[2018-03-30 08:06] LABS: INTERNATIONAL NORMALIZED RATIO 1.1 RATIO
[2018-03-30 08:19] LABS: CALCIUM 8.8 MG/DL (8.5-10.1); CREATININE 0.97 MG/DL (0.50-1.00)
[2018-03-30] MEDS: DOCUSATE SODIUM 50 MG/SENNA 8.6 MG TAB PO SCH (09:00)
--- NOTE | 2018-03-30 09:44 | HHI.PR ---
Subjective Remarks Follow-up on patient A. fib with RVR, CHF. Patient seen and examined. Patient is anxious to go home. States her leg edema is much improved. She denies any complaints of chest pain or shortness of breath. Denies any fever or chills. Denies any nausea, vomiting or abdominal pain. Objective Vitals Vital Signs Date Time Temp Pulse Resp B/P (MAP) Pulse Ox O2 Delivery O2 Flow Rate FiO2 03/30/18 07:54 94 03/30/18 07:52 97.7 83 16 191/81 (117) 93 03/30/18 03:13 97.8 89 18 150/69 (96) 92 03/29/18 19:51 98.0 103 18 159/89 (112) 95 03/29/18 16:15 92 03/29/18 15:46 97.5 92 18 153/68 (96) 94 03/29/18 12:15 98.1 80 18 147/70 (95) 90 03/29/18 11:50 81 I/O 03/29/18 03/29/18 03/29/18 03/30/18 03/30/18 03/30/18 07:00 15:00 23:00 07:00 15:00 23:00 Intake Total 480 ml Output Total 600 ml 1600 ml 400 ml Balance -600 ml -1600 ml 80 ml Intake Oral 480 ml Output Urine Total 600 ml 1600 ml 400 ml # Voids 2 Result Diagram: 03/29/18 0630 03/30/18 0640 Imaging Last Impressions Myocardial Perfusion Scan Nuc Med 03/29/18 0000 Signed Impressions: CONCLUSION: 1. Global hypokinesis with ejection fraction of 43%. 2. No definite reversibility seen to suggest ischemia. Lower Extremity Ultrasound 03/28/18 1721 Signed Impressions: CONCLUSION: 1. No DVT identified. Chest X-Ray 03/28/18 1634 Signed Impressions: CONCLUSION: Suspected minimal left lateral base atelectasis or consolidation. Objective Remarks GENERAL: Well-developed well-nourished pleasant middle-aged white female in no acute distress. Awake and alert. Appears comfortable. HEENT: PERRLA, EOMI. No scleral icterus or conjunctival pallor. No lid lag or facial droop. No nasal drainage. Airway patent. MMM. CARDIOVASCULAR: Irregularly irregular. No obvious murmurs to auscultation. RESPIRATORY: Nonlabored. No obvious rhonchi or wheezing. Clear to auscultation. Breath sounds equal bilaterally. GASTROINTESTINAL: Abdomen soft, non-tender, nondistended. BS normal. MUSCULOSKELETAL: Extremities without clubbing, cyanosis. trace to 1+ edema bilaterally. No obvious deformities. NEUROLOGICAL: Awake, alert and oriented x4. No focal neurologic deficits. Moving both upper and lower extremities spontaneously. Normal speech. PSYCHIATRIC: Appropriate mood and affect. Normal judgment and insight. Procedures None A/P Problem List: (1) Atrial fibrillation with RVR ICD Code: I48.91 - Unspecified atrial fibrillation Status: Acute (2) CHF (congestive heart failure) ICD Code: I50.9 - Heart failure, unspecified Status: Acute (3) HTN (hypertension) ICD Code: I10 - Essential (primary) hypertension (4) ADDISON (acute kidney injury) ICD Code: N17.9 - Acute kidney failure, unspecified (5) DM (diabetes mellitus) ICD Code: E11.9 - Type 2 diabetes mellitus without complications Assessment and Plan 67-year-old female with a PMH of HTN, CHF (Unknown EF), Hyperlipidemia, A. fib , COPD, Tobacco Abuse and DM who presented to ER with complaints of bilateral lower extremity edema x2 wks. Afib w/ RVR: h/o Afib, HR 160's upon arrival, s/p Cardizem 90mg PO x1 in ER Currently rate controlled Echo EF 60-65%, no regional wall motion abnormalities -Cardiology consulted, appreciate assistance. Lexiscan completed with global hypokinesis, no definite reversibility suggesting ischemia. Patient started on warfarin 2.5 mg daily by cardiology. Subtherapeutic. Patient to follow-up with PCP or cardiology in 1-2 days to have INR rechecked. Cleared for discharge from cardiac standpoint. -Continue Cardizem PO 240mg daily -Continue to monitor heart rate CHF: Unknown EF. Suspect secondary to atrial fibrillation. BNP 240, +2 edema bilaterally on exam s/p Lasix, continue w/ diuresis-caution w/ renal function. Doppler LE negative for DVT CXR w/ left base atelectasis/consolidation -CHF teaching -Monitor I/O -Continue on IV Lasix 40 mg twice daily. Monitor electrolytes -Supplemental oxygen as needed -Monitor respiratory status -bilateral ed wraps toes to knees HTN: Uncontrolled. BP 180's on arrival, improved -Continue on Cardizem CD 120 mg daily and labetalol 200 mg twice daily. 03/30 Cardiology increased dose of Cardizem CD 240 mg daily. -Continue to monitor BP and adjust treatment accordingly -Clonidine as needed ADDISON: Creatinine 1.03, previously normal 07/23/13 Creatinine improved to 0.97 -Continue to monitor monitor I/O -caution w/ IVF in light of CHF -Avoid nephrotoxic agents -Continue to monitor kidney function closely DM: chronic BS controlled -continue on sliding scale w/ Accu-Cheks. -Continue to hold home dose of metformin. Hypokalemia -P.o. repletion ordered Ongoing tobaccoism: chronic CXR shows atelectasis -Discussed smoking cessation -IS at bedside -Naida solorzanon -Continue to monitor respiratory status Chronic bilateral hip pain/disability Patient uses a power wheelchair for community ambulation -Resume pain medication per home regimen -PT eval/tx - recommends [facility] PT, patient agreeable. CM consulted to assist with discharge planning. DVT Prophylaxis: Warfarin per cardiology Discharge patient to home Condition on discharge: Improved Heart healthy diabetic diet as tolerated Activity per PT recommendations Rx written: Diltiazem CD 240 mg daily, warfarin 2.5 mg daily Follow-up with primary care physician and welcome wagon hostess from [facility]. Patient understands she needs to follow up with her PCP or welcome wagon hostess in next 1-2 days to have PT/INR rechecked. Problem Qualifiers (1) CHF (congestive heart failure): Qualified Codes: I50.9 - Heart failure, unspecified Cecilia Ramírez Mar 30, 2018 09:44
[2018-03-30] MEDS: FUROSEMIDE 40 MG/4 ML VIAL IV PUSH SCH (10:08)
[2018-03-30] MEDS: buPROPion HCL 150 MG SUSTAINED RELEASE TAB PO SCH (10:08)
[2018-03-30] MEDS: ASPIRIN EC 81 MG TABEC PO SCH (10:09)
[2018-03-30] MEDS: SODIUM CHLORIDE 0.9% FLUSH 10 ML FLUSH IV FLUSH SCH (10:09)
[2018-03-30] MEDS: LABETALOL HCL 200 MG TAB PO SCH (10:09)
[2018-03-30] MEDS: DILTIAZEM-CD 120 MG CAP ER PO SCH (10:09)
[2018-03-30] MEDS ORDERED: DILTIAZEM-CD 120 MG CAP ER PO ONE (11:15)
--- NOTE | 2018-03-30 11:18 | PD.CARD.PN ---
Subjective Subjective Remarks Pt denies complaints, wants to go home Objective Medications Current Medications Medications (Trade) Dose Ordered Sig/Urvashi Route Start Time Stop Time Status Last Admin (Lopressor Inj) 5 mg Q5M PRN IV PUSH 03/28/18 16:45 03/28/18 16:54 (D50w (Vial) Inj) 50 ml UNSCH PRN IV PUSH 03/28/18 20:00 (Glucagon Inj) 1 mg UNSCH PRN OTHER 03/28/18 20:00 (NovoLOG SUPPLEMENTAL SCALE) 1 ACHS SLIDING SCALE SQ 03/28/18 21:00 (Lasix Inj) 40 mg BID@ IV PUSH 03/29/18 09:00 03/30/18 10:08 (NS Flush) 2 ml UNSCH PRN IV FLUSH 03/28/18 20:00 (NS Flush) 2 ml BID IV FLUSH 03/28/18 21:00 03/30/18 10:09 (Reglan Inj) 5 mg Q6H PRN IV PUSH 03/28/18 20:00 (Tylenol) 650 mg Q6H PRN PO 03/28/18 20:00 (Tiffin 5-325 Mg) 1 tab Q4H PRN PO 03/28/18 20:00 03/29/18 23:34 (Michelle-Colace) 1 tab BID PO 03/28/18 21:00 (Milk Of Magnesia Liq) 30 ml Q12H PRN PO 03/28/18 20:00 (Senokot) 17.2 mg Q12H PRN PO 03/28/18 20:00 (Dulcolax Supp) 10 mg DAILY PRN RECTAL 03/28/18 20:00 (Lactulose Liq) 30 ml DAILY PRN PO 03/28/18 20:00 (Ecotrin Ec) 81 mg DAILY PO 03/29/18 09:00 03/30/18 10:09 (Lipitor) 20 mg HS PO 03/28/18 21:00 03/29/18 20:34 (Wellbutrin Sr) 150 mg DAILY PO 03/29/18 09:00 03/30/18 10:08 (Trandate) 200 mg BID PO 03/28/18 21:00 03/30/18 10:09 (Remeron) 15 mg HS PO 03/28/18 21:00 03/29/18 20:34 (Cardizem Cd) 120 mg DAILY PO 03/29/18 09:00 03/30/18 10:09 Pharmacy Profile Note 0 ml @ 0 mls/hr UNSCH OTHER 03/29/18 09:00 (Duoneb Neb) 1 ampule Q4HR NEB PRN NEB 03/29/18 12:00 (Catapres) 0.1 mg Q6H PRN PO 03/29/18 10:15 (Coumadin) 2.5 mg DAILY@1600 PO 03/29/18 16:00 03/29/18 17:29 (Flexeril) 5 mg Q8H PRN PO 03/29/18 13:00 03/30/18 07:54 (Pill Splitter) 1 ea UNSCH PRN OTHER 03/29/18 13:00 (Lac-Hydrin 12% Lotion) 1 applic BID TOPICAL 03/30/18 21:00 Vital Signs / I&O Vital Signs Date Time Temp Pulse Resp B/P (MAP) Pulse Ox O2 Delivery O2 Flow Rate FiO2 03/30/18 07:54 94 03/30/18 07:52 97.7 83 16 191/81 (117) 93 03/30/18 03:13 97.8 89 18 150/69 (96) 92 03/29/18 19:51 98.0 103 18 159/89 (112) 95 03/29/18 16:15 92 03/29/18 15:46 97.5 92 18 153/68 (96) 94 03/29/18 12:15 98.1 80 18 147/70 (95) 90 03/29/18 11:50 81 I/O 03/29/18 03/29/18 03/29/18 03/30/18 03/30/18 03/30/18 06:59 14:59 22:59 06:59 14:59 22:59 Intake Total 480 ml 240 ml Output Total 600 ml 1600 ml 400 ml 250 ml Balance -600 ml -1600 ml 80 ml -10 ml Intake Oral 480 ml 240 ml Output Urine Total 600 ml 1600 ml 400 ml 250 ml # Voids 2 Physical Exam GENERAL: This is a well-nourished, well-developed patient, in no apparent distress. CARDIOVASCULAR: Regular rate and irregular rhythm without murmurs, gallops, or rubs. RESPIRATORY: Clear to auscultation. Breath sounds equal bilaterally. No wheezes , rales, or rhonchi. GASTROINTESTINAL: Abdomen soft, non-tender, nondistended. Normal, active bowel sounds MUSCULOSKELETAL: Extremities without clubbing, cyanosis, or edema. NEURO: Alert & Oriented x4 to person, place, time, situation. Moves all ext x4 Laboratory Laboratory Tests Test 03/30/18 06:40 Prothrombin Time 11.0 SEC Prothromb Time International Ratio 1.1 RATIO Blood Urea Nitrogen 15 MG/DL Creatinine 0.97 MG/DL Random Glucose 98 MG/DL Calcium Level 8.8 MG/DL Sodium Level 143 MEQ/L Potassium Level 3.3 MEQ/L Chloride Level 106 MEQ/L Carbon Dioxide Level 27.0 MEQ/L Anion Gap 10 MEQ/L Estimat Glomerular Filtration Rate 57 ML/MIN Imaging Last Impressions Myocardial Perfusion Scan Nuc Med 03/29/18 0000 Signed Impressions: CONCLUSION: 1. Global hypokinesis with ejection fraction of 43%. 2. No definite reversibility seen to suggest ischemia. Lower Extremity Ultrasound 03/28/18 1721 Signed Impressions: CONCLUSION: 1. No DVT identified. Chest X-Ray 03/28/18 1634 Signed Impressions: CONCLUSION: Suspected minimal left lateral base atelectasis or consolidation. Assessment and Plan Problem List: (1) Atrial fibrillation with RVR ICD Codes: I48.91 - Unspecified atrial fibrillation Status: Acute Plan: on warfarin, increased diltiazem, echo pending (2) CHF (congestive heart failure) ICD Codes: I50.9 - Heart failure, unspecified Status: Acute Plan: compensated, echo pending (3) HTN (hypertension) ICD Codes: I10 - Essential (primary) hypertension Plan: increased cardizem as above. (4) Atypical chest pain ICD Codes: R07.89 - Other chest pain Plan: no ischemia on nuc stress Assessment and Plan If no major findings on echo could likely be d/c'd home later today. Problem Qualifiers (1) CHF (congestive heart failure): Qualified Codes: I50.9 - Heart failure, unspecified Luiz Lowe MD Mar 30, 2018 11:18
[2018-03-30 12:00] VITALS: BP 132/70; PULSE 86; RESP 16; TEMP 97.4; O2SAT 92
[2018-03-30 15:45] VITALS: BP 138/70; PULSE 83; RESP 18; TEMP 97.6; O2SAT 96
[2018-03-30] MEDS: WARFARIN SOD 2.5 MG TAB PO SCH (16:22)
[2018-03-30] MEDS ORDERED: DILT240C44 PO (17:22)
[2018-03-30] MEDS ORDERED: WARF-18 PO (17:22)
--- NOTE | 2018-03-30 17:22 | ECHRPT ---
Indication: cardiomyopathy CONCLUSIONS The left ventricular systolic function is normal with an estimated ejection fraction in the range of 60-65%. Normal left ventricular size. Wall thickness is normal. No regional wall motion abnormalities are present. Trace mitral valve regurgitation. Calcification of the non-coronary cusp. There is trace tricuspid valve regurgitation. Normal estimated pulmonary pressures. The estimated pulmonary arterial pressure is 21.7 mmHg. Trivial pericardial effusion BP: / HR: Rhythm: Atrial fibrillation MEASUREMENTS (Male / Female) Normal Values Technical Quality:Excellent 2D ECHO LV Diastolic Diameter PLAX 4.5 cm 4.2 - 5.9 / 3.9 - 5.3 cm LV Systolic Diameter PLAX 3.0 cm IVS Diastolic Thickness 1.1 cm 0.6 - 1.0 / 0.6 - 0.9 cm LVPW Diastolic Thickness 1.1 cm 0.6 - 1.0 / 0.6 - 0.9 cm LV Relative Wall Thickness 0.5 RV Internal Dim ED PLAX 3.1 cm LVOT Diameter 1.9 cm LA Systolic Diameter LX 4.3 cm 3.0 - 4.0 / 2.7 - 3.8 cm LV Ejection Fraction MOD 4C 61.8 % LV Ejection Fraction 4C AL 64.1 % M-MODE Aortic Root Diameter MM 2.3 cm LA Systolic Diameter MM 4.3 cm LA Ao Ratio MM 1.9 AV Cusp Separation MM 1.6 cm DOPPLER AV Peak Velocity 155.0 cm/s AV Peak Gradient 9.6 mmHg LVOT Peak Velocity 77.0 cm/s LVOT Peak Gradient 2.4 mmHg AV Area Cont Eq pk 1.4 cm MV Area PHT 4.2 cm LV E' Lateral Velocity 5.8 cm/s LV E' Septal Velocity 8.0 cm/s TR Peak Velocity 171.0 cm/s TR Peak Gradient 11.7 mmHg Right Atrial Pressure 10.0 mmHg Pulmonary Artery Systolic Pressu 21.7 mmHg Right Ventricular Systolic Press 21.7 mmHg PV Peak Velocity 102.0 cm/s PV Peak Gradient 4.2 mmHg FINDINGS LEFT VENTRICLE The left ventricular systolic function is normal with an estimated ejection fraction in the range of 60-65%. Normal left ventricular size. Wall thickness is normal. No regional wall motion abnormalities are present. RIGHT VENTRICLE Normal right ventricular size and systolic function. LEFT ATRIUM The left atrial size is normal. RIGHT ATRIUM The right atrial size is normal. ATRIAL SEPTUM Normal atrial septal thickness without atrial level shunting by limited color doppler interrogation. AORTA The aortic root and proximal ascending aorta are normal in size on limited imaging. MITRAL VALVE Structurally normal mitral valve. Trace mitral valve regurgitation. AORTIC VALVE Trileaflet aortic valve. Calcification of the non-coronary cusp. TRICUSPID VALVE Structurally normal tricuspid valve. There is trace tricuspid valve regurgitation. Normal estimated pulmonary pressures. The estimated pulmonary arterial pressure is 21.7 mmHg. PULMONARY VALVE No pulmonary valve regurgitation or stenosis. VESSELS The inferior vena cava is normal in size. PERICARDIUM trtivial pericardial effusion. Luiz Lowe MD (Electronically Signed) Final Date:30 March 2018 17:21
--- NOTE | 2018-03-30 17:28 | HHI.DCPOC ---
Discharge Care Plan Diagnosis: (1) HTN (hypertension) (2) DM (diabetes mellitus) (3) ADDISON (acute kidney injury) (4) Atrial fibrillation with RVR (5) Hypokalemia (6) CHF (congestive heart failure) Goals to Promote Your Health * To prevent worsening of your condition and complications * To maintain your health at the optimal level Directions to Meet Your Goals Take your medications as prescribed Follow your dietary instruction Follow activity as directed Keep your appointments as scheduled Take your immunizations and boosters as scheduled If your symptoms worsen call your PCP, if no PCP go to Urgent Care Center or Emergency Room Smoking is Dangerous to Your Health. Avoid second hand smoke Call the 24-hour hour crisis hotline for domestic abuse at Cecilia Ramírez Mar 30, 2018 17:28
[2018-03-30] MEDS ORDERED: POTASSIUM CHLORIDE 10 MEQ CONTROLLED RELEASE TAB PO ONE (17:30)
--- NOTE | 2018-03-30 17:44 | HHI.FF ---
Face to Face Verification Diagnosis: (1) Impaired mobility and activities of daily living (2) Gait instability (3) Risk for falls Physical Therapy Order: Evaluate and Treat, Improve ambulation, Strength and gait training I have seen patient Birgit Monreal on 03/30/18. My clinical findings support the need for the requested home health care services because: Ltd mobility - disease progression Deconditioned w/ increased weakness Limited ability to care for self High risk of falls I certify that my clinical findings support that this patient is homebound because: Hx COPD- exertion dyspnea/weakness Unsteady gait/balance Unsafe to leave home unassisted Unable to use public transportation Cecilia Ramírez Mar 30, 2018 17:44
[2018-03-30] MEDS ORDERED: LACTIC ACID (AMMONIUM LACTATE) 12% LOTION 225 GM BTL TOPICAL SCH (21:00)
[2018-03-31] MEDS ORDERED: DILTIAZEM-CD 120 MG CAP ER PO SCH (09:00)
== END 2018-03-30 18:45 | disposition home or self-care (01) ==
LOC: NEPC 16:20 → NEDA 18:32 → INTOOBSV 18:32 → NEPHCDU 21:22
PROVIDERS: ADMIT Family Medicine; ATTEND Family Medicine
DX: M79.89 Other specified soft tissue disorders (principal); R51 Headache; R06.02 Shortness of breath; R06.09 Other forms of dyspnea; E11.9 Type 2 diabetes mellitus without complications; J44.9 Chronic obstructive pulmonary disease, unspecified; F17.210 Nicotine dependence, cigarettes, uncomplicated; Z79.01 Long term (current) use of anticoagulants; E78.5 Hyperlipidemia, unspecified; M19.90 Unspecified osteoarthritis, unspecified site; Z79.899 Other long term (current) drug therapy; Z79.84 Long term (current) use of oral hypoglycemic drugs; R60.9 Edema, unspecified; I48.91 Unspecified atrial fibrillation; I50.9 Heart failure, unspecified; I11.0 Hypertensive heart disease with heart failure; N17.9 Acute kidney failure, unspecified; J98.11 Atelectasis; E87.6 Hypokalemia; R94.31 Abnormal electrocardiogram [ECG] [EKG]; G89.29 Other chronic pain; M25.551 Pain in right hip; M25.552 Pain in left hip
CPT/HCPCS: 71045; 78452; 80048; 80053; 81001; 82550; 82948; 83880; 84443; 84484; 85025; 85610; 85730; 93005; 93017; 93306; 93970; 94150; 96372; 96374; 96375; 96376; 97162; 99285; A9502; G0378; G8987; G8988; J1940; J2270; J2785

== ENCOUNTER 2018-06-24 17:29 | Inpatient (IN) ==
--- NOTE | 2018-06-24 18:12 | ED ---
HPI General Chief Complaint: Arrhythmia/Palpitations Stated Complaint: HBP Time Seen by Provider: 06/24/18 17:53 Source: patient Mode of arrival: ambulatory Limitations: no limitations History of Present Illness HPI narrative: She is a 67-year-old female presenting to emerge from for evaluation of cardiac arrhythmia. Patient went to her primary doctor's office and was sent to her trust administrator due to her heart rate being rapid. From there she was sent to the emergency department. Patient reports that she has a history of atrial fibrillation. She also reports that she has had the swelling in her lower legs for several days. She reports that normally it alleviates with rest. She reports that she has a blister that appeared on her right lower leg and then popped. She states it is sore, she describes as burning. She denies any chest pain, shortness of breath, fever, chills, dizziness, headache, abdominal pain. Past medical history significant for type 2 diabetes, hypertension, COPD, hyperlipidemia, chronic kidney disease, CHF. Patient is currently on Coumadin. Patient reports compliance with her medications. MD complaint: rapid heart beat and atrial fibrillation Onset (ago): unknown Duration: constant Severity: mild Arrhythmia history: atrial fibrillation, on anti-coagulants and history of electrical cardioversion Associated symptoms: other (Peripheral edema) Treatments prior to arrival: vagal maneuvers, beta-sharon (Patient is currently on metoprolol and Cardizem.) and calcium channel sharon Related Data Home Medications Medication Instructions Recorded Confirmed aspirin [Aspir-81] 81 mg PO DAILY 06/24/18 06/24/18 atorvastatin 20 mg PO DAILY 06/24/18 06/24/18 diltiazem HCl 240 mg PO DAILY 06/24/18 06/24/18 gabapentin 100 mg PO TID 06/24/18 06/24/18 labetalol 200 mg PO BID 06/24/18 06/24/18 metformin 500 mg PO BID 06/24/18 06/24/18 sennosides [Vidhi-ketty] 8.6 mg PO BID 06/24/18 06/24/18 torsemide 20 mg PO DAILY 06/24/18 06/24/18 warfarin 3 mg PO DAILY 06/24/18 06/24/18 Allergies Allergy/AdvReac Type Severity Reaction Status Date / Time No Known Allergies Allergy Unverified 06/24/18 17:59 Review of Systems ROS: all other systems reviewed are negative [facility] Medical History Medical History CHF (congestive heart failure) (Acute) CKD (chronic kidney disease) (Acute) COPD (chronic obstructive pulmonary disease) (Acute) Carotid stenosis, bilateral (Acute) Diabetes (Acute) Hypercholesteremia (Acute) Hypertension (Acute) PVD (peripheral vascular disease) (Acute) Social History Social History Substance History: No History of Abuse Second Hand Smoke Exposure: Yes Smoking Status: Heavy tobacco smoker Tobacco Type: Cigarettes How Often Do You Have a Drink Containing Alcohol: 2 to 4 times a month Recent Travel in [facility] within the Last 8 Weeks: No Recent Out of Country Travel within the Last 8 Weeks: No Immunization History Tetanus Immunization: <5 Years Hx Influenza Vaccine This Season: Yes Exam Narrative Exam Narrative: GENERAL: Overweight, well-developed, alert female. Presenting in no acute distress. SKIN: Focused skin assessment warm/dry. 2+ pitting edema to bilateral lower extremities. There is a 4 cm circular superficial ulceration to the anterior aspect of the right lower leg. HEAD: Atraumatic. Normocephalic. EYES: Pupils equal and round. No scleral icterus. No injection or drainage. ENT: No nasal bleeding or discharge. Mucous membranes pink and moist. NECK: Trachea midline. No JVD. CARDIOVASCULAR: Irregularly regular, tachycardic. No murmur appreciated. RESPIRATORY: No accessory muscle use. Clear to auscultation. Breath sounds equal bilaterally. GASTROINTESTINAL: Abdomen soft, non-tender, nondistended. Hepatic and splenic margins not palpable. MUSCULOSKELETAL: No obvious deformities. No clubbing. No cyanosis. No edema. NEUROLOGICAL: Awake and alert. No obvious cranial nerve deficits. Motor grossly within normal limits. Normal speech. PSYCHIATRIC: Appropriate mood and affect; insight and judgment normal. Course Initial Documented Vital Signs Temperature 97.4 F L 06/24/18 17:40 Pulse Rate 126 H 06/24/18 17:40 Respiratory Rate 21 06/24/18 17:40 Blood Pressure 135/91 H 06/24/18 17:40 Pulse Oximetry 98 06/24/18 17:40 Last Documented Vital Signs Temperature 97.4 F L 06/24/18 17:40 Pulse Rate 91 H 06/24/18 18:46 Respiratory Rate 17 06/24/18 18:46 Blood Pressure 175/73 H 06/24/18 18:46 Pulse Oximetry 97 06/24/18 18:46 Medical Decision Making MONTRELL Attestation MONTRELL supervised visit: Yes Attestation: The history, exam, and medical decision-making in the associated mid-level provider note were completed with my assistance. I reviewed and agree with the findings presented. I attest that I had a [id number] encounter with the patient on the same day, and personally performed and documented my assessment and findings in the medical record. *My assessment and Findings: 67-year-old woman, well-appearing, here with her to multiple medications. Some evidence of volume overload on exam. 2. She has bilateral lower extremity edema with some weeping will recommend control of rate with diltiazem. She has some ischemic change in her EKG. Will also give diuretic. MDM Narrative Medical decision making narrative: Patient is a 67-year-old female presenting from her trust administrator's office with an arrhythmia. Patient's heart rate on initial EKG was 177. Cardizem 20 mg IV 1 dose ordered. Labs and imaging ordered and pending. IV access established, patient was placed on telemetry monitoring continuous pulse oximetry. Medical Screen Exam Complete: Yes Emergency Medical Condition: Yes Differential Diagnosis Differential Diagnosis: CHF versus arrhythmia versus metabolic abnormality versus NSTEMI versus other Medical Records Medical records reviewed: Yes I reviewed the patient's medical records. Lab Data Result diagrams: 06/24/18 18:00 06/24/18 18:00 Lab Results 06/24/18 06/24/18 06/24/18 Range/Units 18:00 18:00 18:00 WBC 8.0 (4.0-11.0) th/mm3 RBC 5.24 (4.00-5.30) mil/mm3 Hgb 15.1 (11.6-15.3) gm/dL Hct 44.3 (35.0-46.0) % MCV 84.5 (80.0-100.0) fL MCH 28.9 (27.0-34.0) pg MCHC 34.2 (32.0-36.0) % RDW 17.7 H (11.6-17.2) % Plt Count 202 (150-450) th/mm3 MPV 7.8 (7.0-11.0) fL Neut % (Auto) 57.5 (16.0-70.0) % Lymph % (Auto) 34.8 (9.0-44.0) % [place] % (Auto) 6.0 (0.0-8.0) % Eos % (Auto) 1.2 (0.0-4.0) % Baso % (Auto) 0.5 (0.0-2.0) % Neut # (Auto) 4.6 (1.8-7.7) th/mm3 Lymph # (Auto) 2.8 (1.0-4.8) th/mm3 [place] # (Auto) 0.5 (0.0-0.9) th/mm3 Eos # (Auto) 0.1 (0.0-0.4) th/mm3 Baso # (Auto) 0.0 (0.0-0.2) th/mm3 WBC Differential . Differential Comment Auto diff final PT 18.1 H (9.8-11.6) sec INR 1.8 Ratio APTT 37.7 H (24.3-30.1) sec Sodium 142 (136-145) meq/L Potassium 4.0 (3.5-5.1) meq/L Chloride 108 H (98-107) meq/L Carbon Dioxide 25.6 (21.0-32.0) meq/L Anion Gap 8 (5-15) meq/L BUN 15 (7-18) mg/dL Creatinine 0.93 (0.50-1.00) mg/dL Estimated GFR 60 L (>89) mL/min Random Glucose 128 H (74-106) mg/dL Calcium 8.6 (8.5-10.1) mg/dL Magnesium 1.9 (1.5-2.5) mg/dL Total Bilirubin 0.7 (0.2-1.0) mg/dL AST 15 (15-37) U/L ALT 15 (10-53) U/L Alkaline Phosphatase 66 (45-117) U/L Total Creatine Kinase 44 (26-192) U/L Troponin I Less than 0.02 L (0.02-0.05) ng/mL Total Protein 7.6 (6.4-8.2) g/dL Albumin 3.4 (3.4-5.0) g/dL Lipase 115 (73-393) U/L TSH (0.358-3.740) uIU/mL Free T4 (0.76-1.46) ng/dL 06/24/18 Range/Units 18:00 WBC (4.0-11.0) th/mm3 RBC (4.00-5.30) mil/mm3 Hgb (11.6-15.3) gm/dL Hct (35.0-46.0) % MCV (80.0-100.0) fL MCH (27.0-34.0) pg MCHC (32.0-36.0) % RDW (11.6-17.2) % Plt Count (150-450) th/mm3 MPV (7.0-11.0) fL Neut % (Auto) (16.0-70.0) % Lymph % (Auto) (9.0-44.0) % [place] % (Auto) (0.0-8.0) % Eos % (Auto) (0.0-4.0) % Baso % (Auto) (0.0-2.0) % Neut # (Auto) (1.8-7.7) th/mm3 Lymph # (Auto) (1.0-4.8) th/mm3 [place] # (Auto) (0.0-0.9) th/mm3 Eos # (Auto) (0.0-0.4) th/mm3 Baso # (Auto) (0.0-0.2) th/mm3 WBC Differential Differential Comment PT (9.8-11.6) sec INR Ratio APTT (24.3-30.1) sec Sodium (136-145) meq/L Potassium (3.5-5.1) meq/L Chloride (98-107) meq/L Carbon Dioxide (21.0-32.0) meq/L Anion Gap (5-15) meq/L BUN (7-18) mg/dL Creatinine (0.50-1.00) mg/dL Estimated GFR (>89) mL/min Random Glucose (74-106) mg/dL Calcium (8.5-10.1) mg/dL Magnesium (1.5-2.5) mg/dL Total Bilirubin (0.2-1.0) mg/dL AST (15-37) U/L ALT (10-53) U/L Alkaline Phosphatase (45-117) U/L Total Creatine Kinase (26-192) U/L Troponin I (0.02-0.05) ng/mL Total Protein (6.4-8.2) g/dL Albumin (3.4-5.0) g/dL Lipase (73-393) U/L TSH 2.930 (0.358-3.740) uIU/mL Free T4 1.09 (0.76-1.46) ng/dL Imaging Data Radiologist's impression: Chest X-Ray 06/24/18 17:58 CONCLUSION: Cardiomegaly with probable minimal interstitial edema pattern and basilar atelectasis. Discharge Plan Discharge Disposition Patient Disposition: 30 Still Patient Physicians Team ED Provider: Ulysses Alvarado ED Midlevel Provider: Amy Chandler Rxs /Orders / Referrals /Forms Prescriptions: No Action metformin 500 mg Tablet 500 mg PO BID RF: 0 sennosides [Vidhi-ketty] 8.6 mg Tablet 8.6 mg PO BID RF: 0 atorvastatin 20 mg Tablet 20 mg PO DAILY RF: 0 labetalol 200 mg Tablet 200 mg PO BID RF: 0 torsemide 20 mg Tablet 20 mg PO DAILY RF: 0 diltiazem HCl 240 mg Capsule,Extended Release 24 Hr 240 mg PO DAILY RF: 0 aspirin [Aspir-81] 81 mg Tablet,Delayed Release (Dr/Ec) 81 mg PO DAILY RF: 0 warfarin 3 mg Tablet 3 mg PO DAILY RF: 0 gabapentin 100 mg Capsule 100 mg PO TID RF: 0 Discharge Interventions Interventions: Vital Signs Last Done: 06/24/18 17:40 Status ED Status: With Doctor
[2018-06-24 18:22] LABS: Baso % (Auto) 0.5 % (0.0-2.0); Eos # (Auto) 0.1 th/mm3 (0.0-0.4); Eos % (Auto) 1.2 % (0.0-4.0); Hematocrit 44.3 % (35.0-46.0); Hemoglobin 15.1 gm/dL (11.6-15.3); Lymph # (Auto) 2.8 th/mm3 (1.0-4.8); Lymph % (Auto) 34.8 % (9.0-44.0); Mean Corpuscular HGB Conc 34.2 % (32.0-36.0); Mean Corpuscular Hemoglobin 28.9 pg (27.0-34.0); Mean Corpuscular Volume 84.5 fL (80.0-100.0); Mean Platelet Volume 7.8 fL (7.0-11.0); Mono # (Auto) 0.5 th/mm3 (0.0-0.9); Neut # (Auto) 4.6 th/mm3 (1.8-7.7); Neut % (Auto) 57.5 % (16.0-70.0); Platelet Count 202 th/mm3 (150-450); Red Blood Count 5.24 mil/mm3 (4.00-5.30); Red Cell Distribution Width 17.7 % (11.6-17.2)
--- NOTE | 2018-06-24 18:33 | XR ---
EXAM DATE: 06/24/2018 6:21 PM EDT AGE/SEX: 67 years / Female INDICATIONS: Short of breath, elevated blood pressure. CLINICAL DATA: This is the patient's initial encounter. Patient reports that signs and symptoms have been present for 1 day and indicates a pain score of 0/10. MEDICAL/SURGICAL HISTORY: None. None. COMPARISON: [facility] [place], 03/28/2018. . FINDINGS: Heart size enlarged. Mild interstitial edema pattern and basilar atelectasis. No effusion. No pneumot horax. CONCLUSION: Cardiomegaly with probable minimal interstitial edema pattern and basilar atelectasis. Electronically signed by: Sukh Vidal MD 06/24/2018 6:31 PM EDT
[2018-06-24 18:34] LABS: Activated Partial Thrombo Time 37.7 sec (24.3-30.1); INR 1.8 Ratio; Prothrombin Time 18.1 sec (9.8-11.6)
[2018-06-24 18:44] LABS: Alanine Aminotransferase 15 U/L (10-53); Albumin 3.4 g/dL (3.4-5.0); Anion Gap 8 meq/L (5-15); Aspartate Aminotransferase 15 U/L (15-37); Blood Urea Nitrogen 15 mg/dL (7-18); Calcium 8.6 mg/dL (8.5-10.1); Carbon Dioxide 25.6 meq/L (21.0-32.0); Chloride 108 meq/L (98-107); Glomerular Filtration Rate 60 mL/min (>89); Glucose,Random 128 mg/dL (74-106); Lipase 115 U/L (73-393); Magnesium 1.9 mg/dL (1.5-2.5); Sodium 142 meq/L (136-145)
[2018-06-24 18:48] LABS: Alkaline Phosphatase 66 U/L (45-117); Total Protein 7.6 g/dL (6.4-8.2)
[2018-06-24 18:57] LABS: Creatine Kinase 44 U/L (26-192)
[2018-06-24 18:58] LABS: Free T4 (Free Thyroxine) 1.09 ng/dL (0.76-1.46); Thyroid Stimulating Hormone 2.93 uIU/mL (0.358-3.740)
[2018-06-24] MEDS ORDERED: dilTIAZem Inj 125 MG in Sodium Chlor 0.9% Inj 100 ML IV.CONT PRN (19:06)
[2018-06-24 19:25] LABS: Bacteria,Urine Many /hpf; Bilirubin,Urine Negative (Negative); Clarity,Urine Hazy (Clear); Color,Urine Yellow (Yellw/Straw); Glucose,Urine (UA) Negative (Negative); Leukocyte Esterase,Urine Trace (Negative); Mucus,Urine Few /lpf (Occasional); Nitrite,Urine Positive (Negative); Specific Gravity,Urine 1.011 (1.002-1.035); Squamous Epithelial Cell,Urine <1 /hpf (0-5)
[2018-06-24] MEDS ORDERED: Bisacodyl 10 MG Supp RECTAL PRN (19:39)
[2018-06-24] MEDS ORDERED: Acetaminophen 325 MG Tablet PO PRN (19:39)
[2018-06-24] MEDS ORDERED: Prochlorperazine 25 MG Supp RECTAL PRN (19:39)
[2018-06-24] MEDS ORDERED: Zolpidem Tartrate 5 MG Tablet PO PRN (19:39)
[2018-06-24] MEDS ORDERED: Dextrose 50% in Water 50 ML Vial IV.PUSH PRN (20:54)
--- NOTE | 2018-06-24 20:58 | P.HP ---
History of Present Illness Service: [facility] Primary Care Physician: UNKNOWN History of Present Illness: 67-year-old female with a past medical history of atrial fibrillation anticoagulated on warfarin, congestive heart failure, chronic kidney disease, COPD, diabetes, hypertension and hyperlipidemia presents the emergency department from her pst manager's office for the evaluation of atrial fibrillation with RVR. The patient's pst manager is Dr. Guerrero. She denies any chest pain or shortness of breath. Endorses palpitations. She states she feels "normal". No abdominal pain. No nausea/vomiting/diarrhea. No fevers/chills. No lateralizing signs/symptoms. Inpatient Certification: I certify that the inpatient services were ordered in accordance with Medicare regulations governing the order. This includes certification that hospital inpatient services are reasonable and necessary and in the case of services not specified as inpatient-only under 42 CFR 419.22(n), that they are appropriately provided as inpatient services in accordance to with the 2-midnight benchmark under 43 CFR 412.3(e) Estimated Total Length of Stay (Days): 3 Plans for Post Hospital Care: Not yet determined Review of Systems All other systems reviewed negative except as stated in HPI [facility] - History History Provided By: Patient - Medical History Medical History: Medical History (Last Updated 06/24/18 @ 20:47 by Renae Santamaria MD) Atrial fibrillation COPD (chronic obstructive pulmonary disease) Diabetes Hypercholesteremia Hypertension CHF (congestive heart failure) CKD (chronic kidney disease) Carotid stenosis, bilateral PVD (peripheral vascular disease) - Surgical History Surgical History: Surgical History (Last Updated 06/24/18 @ 20:48 by Renae Santamaria MD) History of ankle surgery History of cholecystectomy Status post wrist surgery - Family History Family History: Family History (Last Updated 06/24/18 @ 20:48 by Renae Santamaria MD) Other Diabetes mellitus Hypertension - Tobacco History Second Hand Smoke Exposure: Yes Tobacco Use In Past 30 Days: Yes Smoking Status: Heavy tobacco smoker Tobacco Type: Cigarettes - Alcohol History How Often Do You Have a Drink Containing Alcohol: 2 to 4 times a month - Substance Use History Substance History: No History of Abuse - Travel History Recent Travel in the [place] Within the Last 8 Weeks: No Recent Travel Out of the Country Within the Last 8 Weeks: No - Immunization History Tetanus Immunization: <5 Years Hx Influenza Vaccine This Season: Yes Medications and Allergies Active Medications: Active Medications Acetaminophen (Tylenol) 650 mg PO Q4H PRN PRN Reason: Temp > 100.4 Aspirin (Ecotrin) 81 mg PO DAILY MIGUEL Atorvastatin Calcium (Lipitor) 20 mg PO DAILY MIGUEL Bisacodyl (Dulcolax Supp) 10 mg RECTAL DAILY PRN PRN Reason: SEVERE CONSITIPATION Gabapentin (Neurontin) 100 mg PO TID MIGUEL Diltiazem HCl 125 mg/ Sodium (Chloride) 125 mls @ 5 mls/hr IV.CONT TITRATE PRN ; Protocol PRN Reason: Per Protocol Last Admin: 06/24/18 19:43 Dose: 5 mg/hr, 5 mls/hr Ceftriaxone Sodium 1,000 mg/ (Sodium Chloride) 100 mls @ 200 mls/hr IV.SIG Q24H MIGUEL Labetalol HCl (Trandate) 200 mg PO BID MIGUEL Lactulose (Lactulose Liq) 30 ml PO DAILY PRN PRN Reason: SEVERE CONSITIPATION Non-Formulary Medication (Diltiazem Hcl [Diltiazem Hcl]) 240 mg PO DAILY [facility] Prochlorperazine (Compazine Supp) 25 mg RECTAL Q12HR PRN PRN Reason: NAUSEA OR VOMITING Sennosides (Senokot) 17.2 mg PO Q12H PRN PRN Reason: Moderate Constipation Sennosides (Senokot) 8.6 mg PO BID [facility] Sodium Chloride (Ns Flush) 2 ml IV.FLUSH UNSCH PRN PRN Reason: FLUSH AFTER USING IV ACCESS Torsemide (Demadex) 20 mg PO DAILY [facility] Warfarin Sodium (Coumadin) 3 mg PO DAILY [facility] Zolpidem Tartrate (Ambien) 5 mg PO HS PRN PRN Reason: INSOMNIA Allergies Allergy/AdvReac Type Severity Reaction Status Date / Time No Known Allergies Allergy Unverified 06/24/18 17:59 Home Medications Medication Instructions Recorded Confirmed Type aspirin [Aspir-81] 81 mg PO DAILY 06/24/18 06/24/18 History atorvastatin 20 mg PO DAILY 06/24/18 06/24/18 History diltiazem HCl 240 mg PO DAILY 06/24/18 06/24/18 History gabapentin 100 mg PO TID 06/24/18 06/24/18 History labetalol 200 mg PO BID 06/24/18 06/24/18 History metformin 500 mg PO BID 06/24/18 06/24/18 History sennosides [Vidhi-ketty] 8.6 mg PO BID 06/24/18 06/24/18 History torsemide 20 mg PO DAILY 06/24/18 06/24/18 History warfarin 3 mg PO DAILY 06/24/18 06/24/18 History Exam Vital signs: Vital Signs 06/24/18 17:40 06/24/18 18:02 06/24/18 18:08 Temperature 97.4 F L Pulse Rate 126 H 182 H 117 H Respiratory Rate 21 20 Blood Pressure 135/91 H 141/79 H Pulse Oximetry 98 95 06/24/18 18:46 Temperature Pulse Rate 91 H Respiratory Rate 17 Blood Pressure 175/73 H Pulse Oximetry 97 Intake & Output 06/24/18 06/24/18 06/25/18 06:59 18:59 06:59 Weight 94.347 kg Narrative: Gen.: No acute distress Head: Normocephalic. Atraumatic. EENT: Pupils equal round and reactive to light. Nose without drainage. Airway intact. Throat without injection. Cardiovascular: Tachycardic. Irregularly irregular rhythm. No murmurs, rubs or gallops. Respiratory: Lungs clear to auscultation bilaterally. No wheezes or rhonchi. Abdomen: Soft, nontender, nondistended. No peritoneal signs. Musculoskeletal: No gross deformities. No edema. Skin: No obvious rashes or erythema. Neuro: Sensory and motor grossly intact. Cranial nerves II through XII grossly intact. Results - Labs CBC & Chem 7: 06/24/18 18:00 06/24/18 18:00 Labs: Laboratory Results - last 24 hr 06/24/18 06/24/18 06/24/18 18:00 18:00 18:00 WBC 8.0 RBC 5.24 Hgb 15.1 Hct 44.3 MCV 84.5 MCH 28.9 MCHC 34.2 RDW 17.7 H Plt Count 202 MPV 7.8 Neut % (Auto) 57.5 Lymph % (Auto) 34.8 [place] % (Auto) 6.0 Eos % (Auto) 1.2 Baso % (Auto) 0.5 Neut # (Auto) 4.6 Lymph # (Auto) 2.8 [place] # (Auto) 0.5 Eos # (Auto) 0.1 Baso # (Auto) 0.0 WBC Differential . Differential Comment Auto diff final PT 18.1 H INR 1.8 APTT 37.7 H Sodium 142 Potassium 4.0 Chloride 108 H Carbon Dioxide 25.6 Anion Gap 8 BUN 15 Creatinine 0.93 Estimated GFR 60 L Random Glucose 128 H Calcium 8.6 Magnesium 1.9 Total Bilirubin 0.7 AST 15 ALT 15 Alkaline Phosphatase 66 Total Creatine Kinase 44 Troponin I Less than 0.02 L B-Natriuretic Peptide Total Protein 7.6 Albumin 3.4 Lipase 115 TSH Free T4 Urine Color Urine Clarity Urine pH Ur Specific Alpha Urine Protein Urine Glucose (UA) Urine Ketones Urine Occult Blood Urine Nitrate Urine Bilirubin Urine Urobilinogen Ur Leukocyte Esterase Urine RBC Urine WBC Ur Squamous Epith Cells Urine Bacteria Urine Mucus Micro UA Comment Ur Microscopic Review Urine Culture Comments 06/24/18 06/24/18 06/24/18 18:00 18:00 18:58 WBC RBC Hgb Hct MCV MCH MCHC RDW Plt Count MPV Neut % (Auto) Lymph % (Auto) [place] % (Auto) Eos % (Auto) Baso % (Auto) Neut # (Auto) Lymph # (Auto) [place] # (Auto) Eos # (Auto) Baso # (Auto) WBC Differential Differential Comment PT INR APTT Sodium Potassium Chloride Carbon Dioxide Anion Gap BUN Creatinine Estimated GFR Random Glucose Calcium Magnesium Total Bilirubin AST ALT Alkaline Phosphatase Total Creatine Kinase Troponin I B-Natriuretic Peptide 411 H Total Protein Albumin Lipase TSH 2.930 Free T4 1.09 Urine Color Yellow Urine Clarity Hazy H Urine pH 6.0 Ur Specific Alpha 1.011 Urine Protein Negative Urine Glucose (UA) Negative Urine Ketones Negative Urine Occult Blood Small H Urine Nitrate Positive H Urine Bilirubin Negative Urine Urobilinogen 2.0 H Ur Leukocyte Esterase Trace H Urine RBC Less than 1 Urine WBC 6 H Ur Squamous Epith Cells <1 Urine Bacteria Many H Urine Mucus Few H Micro UA Comment Culture indicated Ur Microscopic Review Not Reportable Urine Culture Comments Culture indicated - Imaging Impressions Chest X-Ray 06/24/18 17:58 CONCLUSION: Cardiomegaly with probable minimal interstitial edema pattern and basilar atelectasis. Caprini VTE Risk Assessment Caprini VTE Risk Assessment: Moderate/High Risk (score >= 2) Caprini Risk Assessment Model: Point Value = 1 Point Value = 2 Point Value = 3 Point Value = 5 Age 41-60 Minor surgery BMI > 25 kg/m2 Swollen legs Varicose veins or History of unexplained or recurrent spontaneous Oral contraceptives or hormone replacement Sepsis (< 1 month) Serious lung disease, including pneumonia (< 1 month) Abnormal pulmonary function Acute myocardial infarction Congestive heart failure (< 1 month) History of inflammatory bowel disease Medical patient at bed rest Age 61-74 Arthroscopic surgery Major open surgery (> 45 min) Laparoscopic surgery (> 45 min) Malignancy Confined to bed (> 72 hours) Immobilizing plaster cast Central venous access Age >= 75 History of VTE Family history of VTE Factor V Leiden Prothrombin [id number] Lupus anticoagulant Anticardiolipin antibodies Elevated serum homocysteine Heparin-induced thrombocytopenia Other congenital or acquired thrombophilia Stroke (< 1 month) Elective arthroplasty Hip, pelvis, or leg fracture Acute spinal cord injury (< 1 month) Prophylaxis Regimen: Total Risk Factor Score Risk Level Prophylaxis Regimen 0-1 Low Early ambulation 2 Moderate Order ONE of the following: *Sequential Compression Device (SCD) *Heparin 5000 units SQ BID 3-4 Higher Order ONE of the following medications: *Heparin 5000 units SQ TID *Enoxaparin/Lovenox 40 mg SQ daily (WT < 150 kg, CrCl > 30 mL/min) *Enoxaparin/Lovenox 30 mg SQ daily (WT < 150 kg, CrCl > 10-29 mL/min) *Enoxaparin/Lovenox 30 mg SQ BID (WT < 150 kg, CrCl > 30 mL/min) AND/OR *Sequential Compression Device (SCD) 5 or more Highest Order ONE of the following medications: *Heparin 5000 units SQ TID (Preferred with Epidurals) *Enoxaparin/Lovenox 40 mg SQ daily (WT < 150 kg, CrCl > 30 mL/min) *Enoxaparin/Lovenox 30 mg SQ daily (WT < 150 kg, CrCl > 10-29 mL/min) *Enoxaparin/Lovenox 30 mg SQ BID (WT < 150 kg, CrCl > 30 mL/min) AND *Sequential Compression Device (SCD) Assessment and Plan - Plan Assessment/plan: 1. Atrial fibrillation with rapid ventricular response EKG significant for A. fib with RVR, heart rate pulse 177, no signs of ischemia , personally reviewed Diltiazem drip Continue p.o. diltiazem Cardiology consulted, appreciate recommendations Wean drip as tolerated Continue warfarin 2. CHF/hypertension/hyperlipidemia Continue home medications 3. Diabetes mellitus Holding home metformin Sliding-scale insulin Monitor blood glucose 4. Urinary tract infection UA consistent with UTI Urine culture pending Rocephin FEN Reticulocyte diet Electrolytes: Urine replete as needed Warfarin
[2018-06-24] MEDS: Labetalol 200 MG Tablet PO SCH (22:35)
[2018-06-24] MEDS: Gabapentin 100 MG Capsule PO SCH (22:36)
[2018-06-24] MEDS: Insulin NovoLIN Regular Correctional Sugar Inj SQ SCH (22:45)
[2018-06-25] MEDS: Insulin NovoLIN Regular Correctional Sugar Inj SQ SCH ×3 (02:54→13:04)
[2018-06-25 06:34] LABS: INR 1.7 Ratio
[2018-06-25 06:51] LABS: Baso % (Auto) 0.6 % (0.0-2.0); Eos # (Auto) 0.1 th/mm3 (0.0-0.4); Eos % (Auto) 1.8 % (0.0-4.0); Hematocrit 38.8 % (35.0-46.0); Hemoglobin 12.9 gm/dL (11.6-15.3); Lymph # (Auto) 1.9 th/mm3 (1.0-4.8); Lymph % (Auto) 36.8 % (9.0-44.0); Mean Corpuscular HGB Conc 33.3 % (32.0-36.0); Mean Corpuscular Volume 84.1 fL (80.0-100.0); Mean Platelet Volume 7.9 fL (7.0-11.0); Mono # (Auto) 0.4 th/mm3 (0.0-0.9); Mono % (Auto) 7.5 % (0.0-8.0); Neut # (Auto) 2.7 th/mm3 (1.8-7.7); Neut % (Auto) 53.3 % (16.0-70.0); Platelet Count 165 th/mm3 (150-450); Red Blood Count 4.61 mil/mm3 (4.00-5.30); Red Cell Distribution Width 17.8 % (11.6-17.2); White Blood Count 5.1 th/mm3 (4.0-11.0)
[2018-06-25 06:52] LABS: Calcium 8.6 mg/dL (8.5-10.1); Carbon Dioxide 26.6 meq/L (21.0-32.0); Potassium 3.3 meq/L (3.5-5.1)
[2018-06-25] MEDS: Gabapentin 100 MG Capsule PO SCH ×2 (08:34→13:05)
[2018-06-25] MEDS: Labetalol 200 MG Tablet PO SCH (08:35)
[2018-06-25] MEDS ORDERED: Torsemide 20 MG Tablet PO SCH (09:00)
[2018-06-25] MEDS ORDERED: dilTIAZem CD 240 MG Capsule PO SCH (09:00)
[2018-06-25] MEDS ORDERED: dilTIAZem CD 120 MG Capsule PO ONE (10:52)
--- NOTE | 2018-06-25 11:17 | MB ---
cc: Rickey Espinosa DO DATE: 06/25/2018 REASON FOR CONSULTATION: Atrial fibrillation with a rapid ventricular response. HISTORY OF PRESENT ILLNESS: Birgit Monreal is a pleasant 67-year-old female who sees my partner, Dr. Luiz Lowe in the office and presented to [facility] due to atrial fibrillation with rapid ventricular response. She was previously here in 03/2018, and during that time underwent a stress test which showed no myocardial ischemia. She was discharged home on Coumadin and Cardizem. Apparently, she was seen in her primary care physician's office earlier this month and was noted to have a heart rate of 160 and asked to follow up with cardiology. On arrival to see Dr. Lowe yesterday, her heart rate was 170. She was completely stable with no chest pain, shortness of breath or palpitations. Her only complaint is that she still has some mild edema with her right lower extremity having a blister which is open and some mild redness of the legs. PAST MEDICAL HISTORY: 1. Atrial fibrillation with rapid ventricular response. 2. COPD. 3. Diabetes. 4. Hyperlipidemia. 5. Hypertension. 6. Congestive heart failure with previous ejection fraction of 60%-65%, most likely diastolic due to atrial fibrillation with rapid ventricular response. 7. Chronic kidney disease. 8. Carotid stenosis/peripheral vascular disease. PAST SURGICAL HISTORY: 1. Ankle surgery. 2. Cholecystectomy. 3. Wrist surgery. ALLERGIES: NO KNOWN DRUG ALLERGIES. MEDICATIONS: 1. Cardizem-CD 240 mg daily. 2. Furosemide 20 mg daily. 3. Labetalol 200 mg b.i.d. 4. Aspirin 81 mg daily. 5. Metformin 500 mg b.i.d. 6. Gabapentin 100 mg t.i.d. 7. Coumadin 3 mg daily. 8. Lipitor 20 mg daily. FAMILY HISTORY: Denies premature coronary artery disease or sudden cardiac within the family. SOCIAL HISTORY: The patient smokes daily. Drinks 2-4 times per month. Denies drug abuse. REVIEW OF SYSTEMS: Fourteen systems were reviewed including osteopathic. Pertinent positives and negatives above, otherwise negative. PHYSICAL EXAMINATION: VITAL SIGNS: Temperature 97.3, heart rate 95, blood pressure 142/77, respirations 14, pulse oximetry 97% on room air. GENERAL: The patient appears well, in no acute distress. Alert, awake and oriented x3. HEENT: Extraocular muscles intact. Mucous membranes moist. NECK: Supple. No JVD at 45 degrees. No carotid bruits heard bilaterally. Carotid upstroke is brisk in nature. HEART: Irregularly irregular. Positive first and second heart sounds with no noted murmurs, gallops or rubs. LUNGS: Clear to auscultation bilaterally. No wheezes, rales or rhonchi. ABDOMEN: Soft, nontender, nondistended. No organomegaly noted. EXTREMITIES: Show mild redness with trace edema. Right lower extremity with blister. Femoral and distal pulses intact bilaterally. NEUROLOGIC: No focal deficits. SKIN: Warm, dry and intact. OSTEOPATHIC: No kyphoscoliosis, lordosis or paraspinal tender points. LABORATORY WORK: Hemoglobin 12.9, hematocrit 38.8, platelets 165. INR 1.7. Potassium 3.3, BUN 12, creatinine 0.67. Troponin less than 0.02. Electrocardiogram (06/24/2018 at 17:54): Atrial fibrillation with rapid ventricular response, possible right ventricular conduction delay, nonspecific ST-T wave changes, most likely due to rate. IMPRESSIONS: 1. Atrial fibrillation with rapid ventricular response. 2. Anticoagulation with Coumadin, currently subtherapeutic. 3. Congestive heart failure, appears compensated, most likely due to atrial fibrillation with rapid ventricular response. 4. History of hypertension. 5. History of hyperlipidemia. RECOMMENDATIONS: 1. Ms. Monreal presented to the office with atrial fibrillation with rapid ventricular response. 2. She has been continued on her Cardizem and started on Cardizem 5 mg per hour drip. Her heart rate is currently controlled and so we will plan on increasing her to Cardizem 360 mg CD daily. She will be given an extra dose of 120 today and the drip will be shut off. If stable later this afternoon, she may be discharged from my standpoint. 3. She will continue on Coumadin at this time for an anticoagulant for her atrial fibrillation. 4. If further episodes, consideration would be made for changing labetalol to a more chronotropic beta sharon like metoprolol or a consideration of atrial fibrillation ablation, although she needs to have anticoagulation stable for 4 weeks of possible beforehand. 5. She will followup with Dr. Lowe upon discharge. Thank you for allowing me to see Birgit Monreal. If there are any questions, please do not hesitate to call. DO Ted Tripathi , 10:47 AM , 10:57 AM
[2018-06-25 11:30] VITALS: TEMP 97
--- NOTE | 2018-06-25 13:11 | P.DCO ---
- Home Health Nursing Order: Medical education, Signs/symptoms of disease process, Medication education-adverse effect, Wound care and dressing changes, Nursing assessment with vital signs - Case Management Consult Yes - Certification I have seen patient Birgit Monreal on 06/25/18. My clinical findings support the need for the requested home health care services because: Deconditioned with increased weakness, Limited ability to care for self, Impaired cognition/judgement, High risk of falls, Infection with risk of complications I certify that my clinical findings support that this patient is homebound because: Unsteady gait/balance, Unsafe to leave home unassisted, Non-ambulatory: confined to bed or chair, Unable to use public transportation
--- NOTE | 2018-06-25 13:19 | P.PN ---
Subjective Interval history: Follow-up for atrial fibrillation. Patient is currently doing well. No chest pain, shortness of breath, fever or chills. Patient wants to go home. Physical Exam Vital signs: Vital Signs 06/24/18 17:40 06/24/18 18:02 06/24/18 18:08 Temperature 97.4 F L Pulse Rate 126 H 182 H 117 H Respiratory Rate 21 20 Blood Pressure 135/91 H 141/79 H Pulse Oximetry 98 95 06/24/18 18:46 06/24/18 20:00 06/24/18 21:00 Temperature Pulse Rate 91 H 105 H Respiratory Rate 17 19 Blood Pressure 175/73 H 148/82 H Pulse Oximetry 97 97 06/24/18 22:03 06/24/18 23:03 06/25/18 00:00 Temperature 97.5 F L Pulse Rate 116 H 110 H 84 Respiratory Rate 16 Blood Pressure 139/65 Pulse Oximetry 97 06/25/18 01:00 06/25/18 02:00 06/25/18 03:00 Temperature Pulse Rate 84 100 H 76 Respiratory Rate Blood Pressure Pulse Oximetry 06/25/18 04:00 06/25/18 05:00 06/25/18 06:00 Temperature 97.8 F Pulse Rate 86 78 76 Respiratory Rate 17 Blood Pressure 130/64 Pulse Oximetry 98 06/25/18 07:00 06/25/18 08:00 06/25/18 09:00 Temperature 97.3 F L Pulse Rate 100 H 95 H 100 H Respiratory Rate 14 Blood Pressure 142/77 H Pulse Oximetry 97 06/25/18 10:00 06/25/18 11:00 06/25/18 12:00 Temperature 97.0 F L 97.0 F L Pulse Rate 80 90 70 Respiratory Rate 18 18 Blood Pressure 136/78 136/78 Pulse Oximetry 100 100 Intake & Output 06/24/18 06/25/18 06/25/18 18:59 06:59 18:59 Intake Total 340 / 340 Output Total 800 / 800 400 / 400 Balance -460 / -460 -400 / -400 Weight 94.347 kg 92 kg Intake: IV 100 / 100 Rocephin Inj 1,000 MG In NS Inj 100 / 100 100 ML @ 200 mls/hr IV.SIG Q24H [facility] Rx#:[id number] Oral 240 / 240 Output: Urine 800 / 800 400 / 400 Other: Date of Last Bowel Movement 06/24/18 06/24/18 Narrative: GENERAL: Alert, oriented 3, NAD. SKIN: Warm and dry. HEAD: Normocephalic. EYES: No scleral icterus. No injection or drainage. NECK: Supple, trachea midline. No JVD or lymphadenopathy. CARDIOVASCULAR: Irregularly irregular, rate controlled without murmurs, gallops , or rubs. RESPIRATORY: Breath sounds equal bilaterally. No accessory muscle use. GASTROINTESTINAL: Abdomen soft, non-tender, nondistended. MUSCULOSKELETAL: No cyanosis, or edema. There is mild to moderate chronic venous stasis in lower extremities. Right lower extremity has a superficial circular wound without any active drainage. BACK: Nontender without obvious deformity. No CVA tenderness. Results - Labs CBC & Chem 7: 06/25/18 05:11 06/25/18 05:11 Laboratory Results - last 24 hr 06/24/18 06/24/18 06/24/18 18:00 18:00 18:00 WBC 8.0 RBC 5.24 Hgb 15.1 Hct 44.3 MCV 84.5 MCH 28.9 MCHC 34.2 RDW 17.7 H Plt Count 202 MPV 7.8 Neut % (Auto) 57.5 Lymph % (Auto) 34.8 [place] % (Auto) 6.0 Eos % (Auto) 1.2 Baso % (Auto) 0.5 Neut # (Auto) 4.6 Lymph # (Auto) 2.8 [place] # (Auto) 0.5 Eos # (Auto) 0.1 Baso # (Auto) 0.0 WBC Differential . Differential Comment Auto diff final PT 18.1 H INR 1.8 APTT 37.7 H Sodium 142 Potassium 4.0 Chloride 108 H Carbon Dioxide 25.6 Anion Gap 8 BUN 15 Creatinine 0.93 Estimated GFR 60 L POC Glucose Random Glucose 128 H Calcium 8.6 Magnesium 1.9 Total Bilirubin 0.7 AST 15 ALT 15 Alkaline Phosphatase 66 Total Creatine Kinase 44 Troponin I Less than 0.02 L B-Natriuretic Peptide Total Protein 7.6 Albumin 3.4 Lipase 115 TSH Free T4 Urine Color Urine Clarity Urine pH Ur Specific [place] Urine Protein Urine Glucose (UA) Urine Ketones Urine Occult Blood Urine Nitrate Urine Bilirubin Urine Urobilinogen Ur Leukocyte Esterase Urine RBC Urine WBC Ur Squamous Epith Cells Urine Bacteria Urine Mucus Micro UA Comment Ur Microscopic Review Urine Culture Comments 06/24/18 06/24/18 06/24/18 18:00 18:00 18:58 WBC RBC Hgb Hct MCV MCH MCHC RDW Plt Count MPV Neut % (Auto) Lymph % (Auto) [place] % (Auto) Eos % (Auto) Baso % (Auto) Neut # (Auto) Lymph # (Auto) [place] # (Auto) Eos # (Auto) Baso # (Auto) WBC Differential Differential Comment PT INR APTT Sodium Potassium Chloride Carbon Dioxide Anion Gap BUN Creatinine Estimated GFR POC Glucose Random Glucose Calcium Magnesium Total Bilirubin AST ALT Alkaline Phosphatase Total Creatine Kinase Troponin I B-Natriuretic Peptide 411 H Total Protein Albumin Lipase TSH 2.930 Free T4 1.09 Urine Color Yellow Urine Clarity Hazy H Urine pH 6.0 Ur Specific [place] 1.011 Urine Protein Negative Urine Glucose (UA) Negative Urine Ketones Negative Urine Occult Blood Small H Urine Nitrate Positive H Urine Bilirubin Negative Urine Urobilinogen 2.0 H Ur Leukocyte Esterase Trace H Urine RBC Less than 1 Urine WBC 6 H Ur Squamous Epith Cells <1 Urine Bacteria Many H Urine Mucus Few H Micro UA Comment Culture indicated Ur Microscopic Review Not Reportable Urine Culture Comments Culture indicated 06/24/18 06/25/18 06/25/18 22:41 02:49 05:11 WBC 5.1 RBC 4.61 Hgb 12.9 D Hct 38.8 MCV 84.1 MCH 28.0 MCHC 33.3 RDW 17.8 H Plt Count 165 MPV 7.9 Neut % (Auto) 53.3 Lymph % (Auto) 36.8 [place] % (Auto) 7.5 Eos % (Auto) 1.8 Baso % (Auto) 0.6 Neut # (Auto) 2.7 Lymph # (Auto) 1.9 [place] # (Auto) 0.4 Eos # (Auto) 0.1 Baso # (Auto) 0.0 WBC Differential . Differential Comment Auto diff final PT INR APTT Sodium Potassium Chloride Carbon Dioxide Anion Gap BUN Creatinine Estimated GFR POC Glucose 131 H 115 H Random Glucose Calcium Magnesium Total Bilirubin AST ALT Alkaline Phosphatase Total Creatine Kinase Troponin I B-Natriuretic Peptide Total Protein Albumin Lipase TSH Free T4 Urine Color Urine Clarity Urine pH Ur Specific [place] Urine Protein Urine Glucose (UA) Urine Ketones Urine Occult Blood Urine Nitrate Urine Bilirubin Urine Urobilinogen Ur Leukocyte Esterase Urine RBC Urine WBC Ur Squamous Epith Cells Urine Bacteria Urine Mucus Micro UA Comment Ur Microscopic Review Urine Culture Comments 06/25/18 06/25/18 06/25/18 05:11 05:11 07:40 WBC RBC Hgb Hct MCV MCH MCHC RDW Plt Count MPV Neut % (Auto) Lymph % (Auto) [place] % (Auto) Eos % (Auto) Baso % (Auto) Neut # (Auto) Lymph # (Auto) [place] # (Auto) Eos # (Auto) Baso # (Auto) WBC Differential Differential Comment PT 17.0 H INR 1.7 APTT Sodium 144 Potassium 3.3 L Chloride 108 H Carbon Dioxide 26.6 Anion Gap 9 BUN 12 Creatinine 0.67 Estimated GFR 88 L POC Glucose 109 Random Glucose 99 Calcium 8.6 Magnesium Total Bilirubin AST ALT Alkaline Phosphatase Total Creatine Kinase Troponin I B-Natriuretic Peptide Total Protein Albumin Lipase TSH Free T4 Urine Color Urine Clarity Urine pH Ur Specific [place] Urine Protein Urine Glucose (UA) Urine Ketones Urine Occult Blood Urine Nitrate Urine Bilirubin Urine Urobilinogen Ur Leukocyte Esterase Urine RBC Urine WBC Ur Squamous Epith Cells Urine Bacteria Urine Mucus Micro UA Comment Ur Microscopic Review Urine Culture Comments 06/25/18 11:14 WBC RBC Hgb Hct MCV MCH MCHC RDW Plt Count MPV Neut % (Auto) Lymph % (Auto) [place] % (Auto) Eos % (Auto) Baso % (Auto) Neut # (Auto) Lymph # (Auto) [place] # (Auto) Eos # (Auto) Baso # (Auto) WBC Differential Differential Comment PT INR APTT Sodium Potassium Chloride Carbon Dioxide Anion Gap BUN Creatinine Estimated GFR POC Glucose 152 H Random Glucose Calcium Magnesium Total Bilirubin AST ALT Alkaline Phosphatase Total Creatine Kinase Troponin I B-Natriuretic Peptide Total Protein Albumin Lipase TSH Free T4 Urine Color Urine Clarity Urine pH Ur Specific [place] Urine Protein Urine Glucose (UA) Urine Ketones Urine Occult Blood Urine Nitrate Urine Bilirubin Urine Urobilinogen Ur Leukocyte Esterase Urine RBC Urine WBC Ur Squamous Epith Cells Urine Bacteria Urine Mucus Micro UA Comment Ur Microscopic Review Urine Culture Comments - Imaging Impressions Chest X-Ray 06/24/18 17:58 CONCLUSION: Cardiomegaly with probable minimal interstitial edema pattern and basilar atelectasis. Assessment and Plan - Assessment (1) Atrial fibrillation with rapid ventricular response Code(s): I48.91 - Unspecified atrial fibrillation Status: Acute (2) Wound of right lower extremity Code(s): S81.801A - Unspecified open wound, right lower leg, initial encounter Status: Acute - Plan Ms. Monreal is a pleasant 67-year-old who was admitted to the hospital due to atrial fibrillation with RVR. Atrial fibrillation with RVR -Appreciate cardiology input. Patient will continue Cardizem 360 mg daily -Follow-up with patient's outpatient supervisor insecticide within 1-2 weeks. -We discussed at length regarding warfarin versus apixaban. -I recommended patient and her daughter that if apixaban is covered under her insurance she can start apixaban 5 mg twice a day. If she starts apixaban, she will discontinue warfarin. Chronic venous stasis of the lower extremities Right leg superficial ulcer -We will obtain wound care referral in the outpatient setting -Will arrange home health with nursing and wound care. Full code. Warfarin. Discharge patient to home Condition on discharge: Improved Regular Diet as tolerated Ad Kamille activity Rx written: Cardizem CD 360 mg p.o. daily Apixaban 5 mg twice daily (stop warfarin). D/C Aspirin Follow-up with primary care physician PRN. Wound care within 7-10 days. Cardiology within 1-2 weeks.
[2018-06-25 16:03] VITALS: BP 104/51; PULSE 73; RESP 20; O2SAT 97
--- NOTE | 2018-06-25 21:34 | ECG ---
Date Performed: 06/24/2018 Time Performed: 17:54:36 PTAGE: 67 years EKG: ATRIAL FIBRILLATION WITH RAPID VENTRICULAR RESPONSE POSSIBLE RIGHT VENTRICULAR CONDUCTION D ELAY SEPTAL MYOCARDIAL INFARCTION ABNORMAL ECG PREVIOUS TRACING : 03/28/2018 16.29 Compared to previous tracing, rate faster DOCTOR: Asim Bonner Interpretating Date/Time 06/25/2018 21:33:07
[2018-06-26] MEDS ORDERED: dilTIAZem CD 180 MG Capsule PO SCH (09:00)
== END 2018-06-25 16:41 | disposition home health service (06) ==
LOC: NEPC 17:29 → NEDA 19:20 → HCIS 22:17
PROVIDERS: ADMIT Hospitalist; ATTEND Hospitalist